=== PATIENT | female | born 1965 | race Hispanic/Latino ===

== ENCOUNTER 2016-10-13 20:48 | Inpatient (IN) | payer MEDICAID ==
[2016-10-13 20:49] VITALS: BMI 31.3
--- NOTE | 2016-10-13 21:51 | ED PDOC ---
Syncope/Near Syncope/Dizziness Time Seen by Provider: 10/13/16 20:57 Chief Complaint (Nursing): Dizziness/Lightheaded Chief Complaint (Provider): weakness History Per: Patient History/Exam Limitations: no limitations Onset/Duration Of Symptoms: Days (3), Gradual, Persistent Current Symptoms Are (Timing): Still Present Additional Complaint(s): Pt reports lightheadedness for 4 days, increasing since onset. Symptoms similar to previous episodes of anemia requiring transfusion. She denies chest pain of shortness of breath. +nausea chronic, but no vomiting or diarrhea. No black or bloody stools. No abdominal pain. No fever or chills. No urinary symptoms. When initially diagnosed with anemia, she had bleeding ulcers, esophageal varices, drank heavily, and was told she also had heart failure. 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 PMD. Dr Letha Mauro ([facility]) Past Medical History Reviewed: Historical Data, Nursing Documentation, Vital Signs Vital Signs: Last Vital Signs Temp 97.9 F 10/13/16 20:51 Pulse 84 10/13/16 20:51 Resp 18 10/13/16 20:51 BP 152/104 H 10/13/16 20:51 Pulse Ox 98 10/13/16 20:51 - Medical History PMH: Anemia, Anxiety, Depression, Diabetes, Gastritis, HTN Denies: HIV, Chronic Kidney Disease - Surgical History Surgical History: Endoscopy (WITH BANDING), - Family History Family History: States: Diabetes, Hypertension - Social History Current smoker - smoking cessation education provided: Yes Alcohol: Other (Recovering alcoholis) Drugs: Denies - Home Medications Home Medications: Ambulatory Orders Medication Instructions Recorded Alprazolam [Xanax] 0.25 mg PO DAILY PRN 01/15/14 Glyburide 2.5 mg PO DAILY 01/15/14 Pantoprazole Sodium [Protonix] 40 mg PO DAILY 01/15/14 Cholecalciferol [Vitamin D 1000 IU] 1 tab PO DAILY 07/18/14 Furosemide [Lasix] 20 mg PO DAILY 07/18/14 Propranolol Hydrochloride 10 mg PO DAILY 07/18/14 [Propranolol] Sucralfate [Carafate Oral Susp] 1 gm PO TID 07/18/14 Multivitamin 1 tab PO DAILY #0 tab 07/22/14 Alogliptin Herber/Metformin HCl 1 tab PO BID 10/14/16 [Alogliptin-Metformin 12.5-1000] Cholecalciferol (Vitamin D3) 1 tab PO DAILY 10/14/16 [Vitamin D3] Potassium Chloride [Klor-Con M10] 10 meq PO BID 10/14/16 - Allergies Allergies/Adverse Reactions: Allergies Allergy/AdvReac Type Severity Reaction Status Date / Time No Known Allergies Allergy Verified 07/18/14 13:37 Review of Systems ROS Statement: Except As Marked, All Systems Reviewed And Found Negative (and as per HPI) Constitutional: Positive for: Chills, Weakness, Malaise. Negative for: Fever Cardiovascular: Negative for: Chest Pain Respiratory: Negative for: Shortness of Breath Gastrointestinal: Positive for: Nausea. Negative for: Vomiting, Abdominal Pain , Diarrhea, Melena, Hematochezia, Hematemesis, Rectal Pain Physical Exam - Reviewed Nursing Documentation Reviewed: Yes Vital Signs Reviewed: Yes - Physical Exam Appears: Positive for: Non-toxic, No Acute Distress Head Exam: Positive for: ATRAUMATIC, NORMOCEPHALIC Skin: Positive for: Warm, Dry, Pallor Eye Exam: Positive for: EOMI, PERRL ENT: Positive for: Other (tacky muc membranes) Neck: Positive for: Painless ROM, Supple Cardiovascular/Chest: Positive for: Regular Rate, Rhythm, Chest Non Tender. Negative for: Edema, Murmur Respiratory: Positive for: Normal Breath Sounds. Negative for: Rales, Rhonchi, Wheezing Gastrointestinal/Abdominal: Positive for: Bowel Sounds, Soft. Negative for: Tenderness, Mass, Distended, Guarding Back: Negative for: Vertebral Tenderness Extremity: Positive for: Normal ROM. Negative for: Deformity Lymphatic: Negative for: Adenopathy Neurologic/Psych: Positive for: Alert. Negative for: Motor/Sensory Deficits - Laboratory Results Result Diagrams: 10/15/16 05:30 10/15/16 05:30 - ECG ECG: Positive for: Interpreted By Me ECG Rhythm: Positive for: Normal QRS, Normal ST Segment, Sinus Rhythm O2 Sat by Pulse Oximetry: 98 Pulse Ox Interpretation: Normal - Radiology X-Ray: Interpreted by Me X-Ray Interpretation: No Acute Disease - Progress ED Course And Treament: Findings demonstrate elevated troponin. DW pt findings and she continues to have no chest pain. She reports that she hadn't had any cardiac issues since the first time she was diagnosed with anemia SIMONA Brito [employer] for [facility]. Dr [facility] and Dr [facility] for consults. Per Dr [facility], given history of GI bleed, although she may benefit from ASA and lovenox, because of h/o of severe GI bleed, the risk of bleed outweighs benefit and will be withheld. (One dose ASA given, but no further doses pending further cardiology evaluation. ) Disposition - Clinical Impression Clinical Impression: Anemia, Elevated troponin Counseled Patient/Family Regarding: Studies Performed, Diagnosis - Disposition Disposition Time: 22:00 Condition: GUARDED
[2016-10-13 22:02] LABS: BASO % 0.2 % (0.0-2.0); EOS % 1.1 % (0.0-4.0); HEMATOCRIT 25.7 % (34.0-47.0); LYMPH # 0.6 K/uL (1.0-4.3); LYMPH % 19.2 % (20.0-40.0); MEAN CORPUSCULAR HEMOGLOBIN 26.1 pg (27.0-31.0); MEAN PLATELET VOLUME 8.1 fl (7.2-11.7); MONO # 0.6 K/uL (0.0-0.8); MONO % 18.3 % (0.0-10.0); NEUT # 1.9 K/uL (1.8-7.0); NEUT % 61.2 % (50.0-75.0); RED CELL DISTRIBUTION WIDTH 20.2 % (11.5-14.5); WHITE BLOOD COUNT 3.1 K/uL (4.8-10.8)
[2016-10-13 22:07] LABS: ALB/GLOB RATIO 0.7 (1.0-2.1); ALKALINE PHOSPHATASE 97 U/L (38-126); ALT/SGPT 23 U/L (9-52); AST/SGOT 46 U/L (14-36); BILIRUBIN,TOTAL 0.5 mg/dl (0.2-1.3); BLOOD UREA NITROGEN 9 mg/dl (7-17); CALCIUM 8.9 mg/dL (8.4-10.2); CARBON DIOXIDE 22 mmol/L (22-30); CHLORIDE 99 mmol/L (98-107); GFR AFRICAN-AMERICAN > 60; GLUCOSE,RANDOM 170 mg/dL (65-105); LIPASE 208 U/L (23-300); POTASSIUM 3.9 MMOL/L (3.6-5.0); SODIUM 132 mmol/l (132-148); TOTAL PROTEIN 8.2 G/DL (6.3-8.2)
[2016-10-13 22:14] LABS: PARTIAL THROMBOPLASTIN TIME 29.8 Seconds (25.6-37.1)
--- NOTE | 2016-10-14 06:38 | CP.PCM.PN ---
Subjective - Date & Time of Evaluation Date of Evaluation: 10/14/16 Time of Evaluation: 06:38 Objective - Vital Signs/Intake and Output Vital Signs (last 24 hours): Temp Pulse Resp BP Pulse Ox 99.7 F H 91 H 20 131/76 98 10/14/16 05:19 10/14/16 05:19 10/14/16 05:19 10/14/16 05:19 10/14/16 05:19 - Labs Labs: PT 14.7 Seconds (9.8-13.1) H 10/13/16 21:40 INR 1.3 (0.9-1.2) H 10/13/16 21:40 APTT 29.8 Seconds (25.6-37.1) 10/13/16 21:40
[2016-10-14] MEDS ORDERED: Patient's Own Med (Alogliptin Benz/Metformin Hcl [Alogliptin-Metformin 12.5-1000] 1 TAB) PO SCH (09:00)
[2016-10-14] MEDS ORDERED: Patient's Own Med (Cholecalciferol (Vitamin D3) [Vitamin D3] 1 TAB) PO SCH (09:00)
[2016-10-14 09:17] LABS: BASO % 0.5 % (0.0-2.0); EOS % 0.7 % (0.0-4.0); HEMATOCRIT 23.9 % (34.0-47.0); LYMPH # 0.4 K/uL (1.0-4.3); LYMPH % 13.1 % (20.0-40.0); MEAN CELL VOLUME 83.7 fl (81.0-99.0); MEAN CORPUSCULAR HEMOGLOBIN 26.2 pg (27.0-31.0); MEAN CORPUSCULAR HGB CONC 31.3 g/dL (33.0-37.0); MEAN PLATELET VOLUME 8.3 fl (7.2-11.7); MONO # 0.6 K/uL (0.0-0.8); MONO % 17.7 % (0.0-10.0); NEUT # 2.2 K/uL (1.8-7.0); NRBC % 0.2 % (0.0-0.0); RED CELL DISTRIBUTION WIDTH 19.6 % (11.5-14.5); WHITE BLOOD COUNT 3.2 K/uL (4.8-10.8)
[2016-10-14 09:19] LABS: ALB/GLOB RATIO 0.8 (1.0-2.1); ALKALINE PHOSPHATASE 104 U/L (38-126); ALT/SGPT 25 U/L (9-52); AST/SGOT 38 U/L (14-36); BILIRUBIN,TOTAL 0.6 mg/dl (0.2-1.3); BLOOD UREA NITROGEN 7 mg/dl (7-17); CALCIUM 8.9 mg/dL (8.4-10.2); CARBON DIOXIDE 22 mmol/L (22-30); CHLORIDE 99 mmol/L (98-107); GFR AFRICAN-AMERICAN > 60; GLUCOSE,RANDOM 154 mg/dL (65-105); POTASSIUM 4.4 MMOL/L (3.6-5.0); SODIUM 133 mmol/l (132-148); TOTAL PROTEIN 8.5 G/DL (6.3-8.2)
[2016-10-14 09:24] LABS: PARTIAL THROMBOPLASTIN TIME 30.8 Seconds (25.6-37.1)
--- NOTE | 2016-10-14 10:28 | CP.PCM.HP ---
History of Present Illness - History of Present Illness History of Present Illness: pt admitted for gi bleed and found to have positive troponin. no f/c, n/v/d. pt has intermittent n/v. hgb 8 but pt states is lower usually. stool guiac negative. Present on Admission - Present on Admission Any Indicators Present on Admission: Yes History of Uncontrolled Diabetes: Yes Review of Systems - Gastrointestinal Gastrointestinal: As Per HPI, Hematemesis Past Patient History - Infectious Disease Hx of Infectious Diseases: None - Tetanus Immunizations Tetanus Immunization: Unknown - Past Medical History & Family History Past Medical History?: Yes - Past Social History Smoking Status: Heavy Smoker > 10 Cigarettes Daily - CARDIAC Hx Hypertension: Yes - PULMONARY Hx Respiratory Disorders: No - NEUROLOGICAL Hx Neurological Disorder: No - HEENT Hx HEENT Problems: No - RENAL Hx Chronic Kidney Disease: No - ENDOCRINE/METABOLIC Hx Endocrine Disorders: Yes Hx Diabetes Mellitus Type 2: Yes - HEMATOLOGICAL/ONCOLOGICAL Hx Anemia: Yes Hx Human Immunodeficiency Virus (HIV): No - INTEGUMENTARY Hx Dermatological Problems: No - MUSCULOSKELETAL/RHEUMATOLOGICAL Hx Musculoskeletal Disorders: No Hx Falls: Yes - GASTROINTESTINAL Hx Gastritis: Yes - GENITOURINARY/GYNECOLOGICAL Hx Genitourinary Disorders: No - PSYCHIATRIC Hx Anxiety: Yes Hx Depression: Yes Hx Substance Use: Yes - SURGICAL HISTORY Hx Section: Yes (x2) - ANESTHESIA Hx Anesthesia: Yes Hx Anesthesia Reactions: No Hx Malignant Hyperthermia: No Meds Allergies/Adverse Reactions: Allergies Allergy/AdvReac Type Severity Reaction Status Date / Time No Known Allergies Allergy Verified 07/18/14 13:37 Physical Exam - Constitutional Appears: Well, Non-toxic, No Acute Distress - Head Exam Head Exam: ATRAUMATIC, NORMAL INSPECTION, NORMOCEPHALIC - Eye Exam Eye Exam: EOMI, Normal appearance, PERRL Pupil Exam: NORMAL ACCOMODATION, PERRL - ENT Exam ENT Exam: Mucous Membranes Moist, Normal Exam - Neck Exam Neck exam: Positive for: Normal Inspection - Respiratory Exam Respiratory Exam: Clear to Auscultation Bilateral, NORMAL BREATHING PATTERN - Cardiovascular Exam Cardiovascular Exam: REGULAR RHYTHM, RRR, +S1, +S2 - GI/Abdominal Exam GI & Abdominal Exam: Normal Bowel Sounds, Soft. absent: Tenderness - Extremities Exam Extremities exam: Positive for: full ROM, normal capillary refill, normal inspection, pedal pulses present - Back Exam Back exam: FULL ROM, NORMAL INSPECTION - Neurological Exam Neurological exam: Alert, CN II-XII Intact, Normal Gait, Oriented x3, Reflexes Normal - Psychiatric Exam Psychiatric exam: Normal Affect, Normal Mood - Skin Skin Exam: Dry, Intact, Normal Color, Warm Results - Vital Signs Recent Vital Signs: Last Vital Signs Temp 99.6 F 10/14/16 08:00 Pulse 97 H 10/14/16 08:00 Resp 20 10/14/16 08:00 BP 164/72 H 10/14/16 08:00 Pulse Ox 96 10/14/16 08:00 - Labs Result Diagrams: 10/14/16 08:50 10/14/16 08:50 Labs: Laboratory Results - last 24 hr 10/14/16 10/14/16 10/14/16 06:35 08:50 08:50 WBC 3.2 L RBC 2.86 L Hgb 7.5 L Hct 23.9 L MCV 83.7 MCH 26.2 L MCHC 31.3 L RDW 19.6 H Plt Count 93 L MPV 8.3 Neut % (Auto) 68.0 Lymph % (Auto) 13.1 L Kerr % (Auto) 17.7 H Eos % (Auto) 0.7 Baso % (Auto) 0.5 Neut # 2.2 Lymph # 0.4 L Kerr # 0.6 Eos # 0.0 Baso # 0.0 PT INR APTT Sodium 133 Potassium 4.4 Chloride 99 Carbon Dioxide 22 Anion Gap 16 BUN 7 Creatinine 0.7 Est GFR ( Amer) > 60 Est GFR (Non-Af Amer) > 60 Random Glucose 154 H Calcium 8.9 Total Bilirubin 0.6 AST 38 H ALT 25 Alkaline Phosphatase 104 Troponin I 0.2270 H* Total Protein 8.5 H Albumin 3.7 Globulin 4.8 H Albumin/Globulin Ratio 0.8 L Stool Occult Blood 10/14/16 10/14/16 08:50 23:20 WBC RBC Hgb Hct MCV MCH MCHC RDW Plt Count MPV Neut % (Auto) Lymph % (Auto) Kerr % (Auto) Eos % (Auto) Baso % (Auto) Neut # Lymph # Kerr # Eos # Baso # PT 14.2 H INR 1.3 H APTT 30.8 Sodium Potassium Chloride Carbon Dioxide Anion Gap BUN Creatinine Est GFR ( Amer) Est GFR (Non-Af Amer) Random Glucose Calcium Total Bilirubin AST ALT Alkaline Phosphatase Troponin I Total Protein Albumin Globulin Albumin/Globulin Ratio Stool Occult Blood Negative Assessment & Plan (1) Anemia Assessment and Plan: acute on chronic, r/t chornicl iver disease transfuse 2 unit prbc will monitor Status: Acute Priority: High (2) Elevated troponin Assessment and Plan: cardio echo trops hold asa r/t anemia, chirrhosis, gib Status: Acute (3) Cirrhosis Assessment and Plan: gi ppi Status: Acute (4) DVT prophylaxis Assessment and Plan: scd and aehose ambulation Status: Acute (5) Diabetes type 2, controlled Assessment and Plan: fsbg, ivf hold po meds whil npo riss prn Status: Acute (6) UGIB (upper gastrointestinal bleed) Assessment and Plan: iv ppi, npo Status: Acute Priority: High Decision To Admit - Pt Status Changed To: Hospital Disposition Of: Observation - . Bed Request Type: Telemetry Admitting Physician: Jayna Peterson
[2016-10-14] MEDS: Sucralfate 1 gm/10 ml Oral Susp UD PO SCH ×3 (10:31→17:02)
[2016-10-14] MEDS: Dextrose 5%/0.45% NS 1,000 ML IV SCH ×2 (10:31→21:00)
[2016-10-14] MEDS: Potassium Chloride 10 mEq ER Tab PO SCH ×2 (10:32→17:04)
[2016-10-14] MEDS: Pantoprazole 40 mg EC Tab PO SCH (10:33)
[2016-10-14] MEDS: Multivitamin With Minerals Tab PO SCH (10:33)
--- NOTE | 2016-10-14 15:13 | RAD ---
HISTORY: Lightheaded COMPARISON: Chest x-ray performed 07/18/14 TECHNIQUE: Chest, one view. FINDINGS: LUNGS: Medial right upper lobe opacity, possibly pleural based ; neoplasm is not excluded. Please note that chest x-ray has limited sensitivity for the detection of pulmonary masses. PLEURA: No significant pleural effusion identified. No definite pneumothorax . CARDIOVASCULAR: The cardiomediastinal silhouette appears within normal limits of size. OSSEOUS STRUCTURES: No acute osseous abnormality identified. VISUALIZED UPPER ABDOMEN: Unremarkable. OTHER FINDINGS: None. IMPRESSION: Medial right upper lobe opacity, possibly pleural based; Malignant neoplasm is not excluded. Recommend CT of the chest for further evaluation. Findings discussed with the patient's BRIELLE Marrero on 10/14/16 at 3:05 p.m.
[2016-10-14] MEDS: Promethazine DM 6.25 mg-15 mg/5 ml Syrup PO PRN (21:08)
--- NOTE | 2016-10-14 22:52 | CARD ---
APPROVED REPORT EXAM: Two-dimensional and M-mode echocardiogram with Doppler and color Doppler. Other Information Quality : GoodRhythm : NSR INDICATION Elevated Troponin 2D DIMENSIONS IVSd0.95 (0.7-1.1cm)LVDd4.89 (3.9-5.9cm) LVOT Diameter2.25 (1.8-2.4cm)PWd0.88 (0.7-1.1cm) IVSs1.11 (0.8-1.2cm)LVDs3.49 (2.5-4.0cm) FS (%) 28.6 %PWs1.10 (0.8-1.2cm) LVEF (%)55.0 (>50%) M-Mode DIMENSIONS Left Atrium (MM)3.88 (2.5-4.0cm)IVSd0.82 (0.7-1.1cm) Aortic Root2.94 (2.2-3.7cm)LVDd5.94 (4.0-5.6cm) Aortic Cusp Exc.1.76 (1.5-2.0cm)PWd1.03 (0.7-1.1cm) IVSs1.21 cmFS (%) 41 % LVDs3.50 (2.0-3.8cm)PWs1.56 cm Mitral Valve MV E Klmimshr21.1cm/sMV DECEL [id number] A Dsqxqoct95.7cm/s MV NYS30muU/A ratio1.0MVA (PHT)4.58cm2 TDI Lateral E' Peak V13.85cm/sMedial E' Peak V9.29cm/sE/Lateral E'6.7 E/Medial E'10.0 Pulmonary Valve PV Peak Wyzsyooc262.8cm/s LEFT VENTRICLE The left ventricle is normal size. There is normal left ventricular wall thickness. The left ventricular function is normal. The left ventricular ejection fraction is within the normal range. There is normal LV segmental wall motion. Transmitral Doppler flow pattern is Grade I-abnormal relaxation pattern. RIGHT VENTRICLE The right ventricle is normal size. There is normal right ventricular wall thickness. The right ventricular systolic function is normal. ATRIA The left atrium size is normal. The right atrium size is normal. AORTIC VALVE The aortic valve is not well visualized. No aortic regurgitation is present. There is no aortic valvular stenosis. MITRAL VALVE The mitral valve is mildly thickened. There is no mitral valve stenosis. There is no mitral valve regurgitation noted. TRICUSPID VALVE The tricuspid valve is normal in structure and function. There is no tricuspid valve regurgitation noted. PULMONIC VALVE The pulmonary valve is normal in structure and function. There is no pulmonic valvular regurgitation. GREAT VESSELS The aortic root is normal in size. The IVC was not visualized. PERICARDIAL EFFUSION The pericardium appears normal. <Conclusion> The left ventricle is normal size. There is normal left ventricular wall thickness. The left ventricular function is normal. The left ventricular ejection fraction is within the normal range. There is normal LV segmental wall motion. Transmitral Doppler flow pattern is Grade I-abnormal relaxation pattern.
--- NOTE | 2016-10-14 23:30 | CT ---
EXAM: CT Chest With Intravenous Contrast CLINICAL HISTORY: 51 years old, female; Abnormal findings; Other: Abnormal cxr; Additional info: Suspicious mass on cxr. Sent port cxr from 10-14-2016 TECHNIQUE: Axial computed tomography images of the chest with intravenous contrast. This CT exam was performed using one or more of the following dose reduction techniques: automated exposure control, adjustment of the mA and/or kV according to patient size, and/or use of iterative reconstruction technique. Coronal and sagittal reformatted images were created and reviewed. CONTRAST: 90 mL of [id number] administered intravenously. COMPARISON: CR - CHEST PORTABLE 10/14/2016 12:16:18 AM FINDINGS: Lungs/pleura: Large masslike opacity extending from the right lung apex along the right mediastinum measuring approximately 6 x 7.5 x 9.5 cm. There is apparent extension into the mediastinum and mass effect on the right pulmonary artery, most notably upper lobe branches. No pneumothorax. No significant effusion. Heart: No cardiomegaly. No significant pericardial effusion. Bones: Unremarkable as visualized. No acute fracture Vasculature: No thoracic aortic aneurysm. Cannot evaluate for pulmonary embolism due to admixture from technique, but there is concern for pulmonary embolism based on appearance and followup CTA when patient is able to receive contrast is recommended to evaluate for pulmonary embolism. Lymph nodes: Lymphadenopathy. Difficult to discern right hilar/mediastinal adenopathy from extension of process. Partial visualization of right supraclavicular adenopathy. Nodular contour to the liver. Small hiatal hernia. IMPRESSION: Large masslike opacity extending from the right lung apex along the right mediastinum measuring approximately 6 x 7.5 x 9.5 cm. There is apparent extension into the mediastinum and mass effect on the right pulmonary artery, most notably upper lobe branches. Cannot evaluate for pulmonary embolism due to admixture from technique, but there is concern for pulmonary embolism based on appearance and followup CTA when patient is able to receive contrast is recommended to evaluate for pulmonary embolism. Lymphadenopathy. Difficult to discern right hilar/mediastinal adenopathy from extension of process. Partial visualization of right supraclavicular adenopathy. Nodular contour to the liver. Small hiatal hernia.
--- NOTE | 2016-10-14 23:54 | CARD ---
APPROVED REPORT EKG Measurement Heart [id number] <Conclusion> Normal sinus rhythm Normal ECG
[2016-10-15 07:09] LABS: BASO % 0.3 % (0.0-2.0); EOS % 0.8 % (0.0-4.0); HEMATOCRIT 28.3 % (34.0-47.0); LYMPH # 0.5 K/uL (1.0-4.3); LYMPH % 17.5 % (20.0-40.0); MEAN CELL VOLUME 84.6 fl (81.0-99.0); MEAN CORPUSCULAR HEMOGLOBIN 26.7 pg (27.0-31.0); MEAN CORPUSCULAR HGB CONC 31.5 g/dL (33.0-37.0); MEAN PLATELET VOLUME 8.2 fl (7.2-11.7); MONO # 0.7 K/uL (0.0-0.8); NEUT # 1.6 K/uL (1.8-7.0); NEUT % 57.4 % (50.0-75.0); NRBC % 0.1 % (0.0-0.0); PLATELET COUNT 91 K/uL (130-400); RED CELL DISTRIBUTION WIDTH 18.7 % (11.5-14.5); WHITE BLOOD COUNT 2.9 K/uL (4.8-10.8)
[2016-10-15 07:32] LABS: ALB/GLOB RATIO 0.7 (1.0-2.1); ALKALINE PHOSPHATASE 89 U/L (38-126); ALT/SGPT 31 U/L (9-52); AST/SGOT 39 U/L (14-36); BILIRUBIN,TOTAL 1.3 mg/dl (0.2-1.3); BLOOD UREA NITROGEN 10 mg/dl (7-17); CALCIUM 8.8 mg/dL (8.4-10.2); CARBON DIOXIDE 24 mmol/L (22-30); CHLORIDE 101 mmol/L (98-107); GFR AFRICAN-AMERICAN > 60; GLUCOSE,RANDOM 103 mg/dL (65-105); SODIUM 138 mmol/l (132-148); TOTAL PROTEIN 7.8 G/DL (6.3-8.2)
--- NOTE | 2016-10-15 08:52 | CP.PCM.CON ---
History of Present Illness - History of Present Illness History of Present Illness: I was asked to see patient by Byron Brito APN and Dr. Peterson. Patient is a 51 year old female with PMH HTN, previous GI bleed, esophageal varices who presents with nausea and dizziness. The patient states she has felt lightheaded and foggy lately. Symptoms began about 2 days ago. She has become nauseous but did not vomit. The patient denied associated chest pain. She presented to [facility] and was found to have a Hgb of 8. She also had a troponin of 0.3. Ekg was normal with no ischemia . I was asked for evaluation. The patient is resting comfortably and denies symptoms. Review of Systems - Constitutional Constitutional: Fatigue, Weakness - EENT Eyes: absent: As Per HPI, Blind Spots, Blurred Vision, Change in Vision, Decreased Night Vision, Diplopia, Discharge, Dry Eye, Exophthalmos, Floaters, Irritation, Itchy Eyes, Loss of Peripheral Vision, Pain, Photophobia, Requires Corrective Lenses, Sees Flashes, Spots in Vision, Tunnel Vision, Other Visual Disturbances, Loss of Vision, Other Ears: Disequilibrium Nose/Mouth/Throat: absent: As Per HPI, Epistaxis, Nasal Congestion, Nasal Discharge, Nasal Obstruction, Nasal Trauma, Nose Pain, Post Nasal Drip, Sinus Pain, Sinus Pressure, Bleeding Gums, Change in Voice, Dental Pain, Dry Mouth, Dysphagia, Halitosis, Hoarsness, Lip Swelling, Mouth Lesions, Mouth Pain, Odynophagia, Sore Throat, Throat Swelling, Tongue Swelling, Facial Pain, Neck Pain, Neck Mass, Other - Cardiovascular Cardiovascular: absent: As Per HPI, Acrocyanosis, Chest Pain, Chest Pain at Rest , Chest Pain with Activity, Claudication, Diaphoresis, Dyspnea, Dyspnea on Exertion, Edema, Irregular Heart Rhythm, Pain Radiating to Arm/Neck/Jaw, Leg Edema, Leg Ulcers, Lightheadedness, Orthopnea, Palpitations, Paroxysmal Nocturnal Dyspnea, Pedal Edema, Radiating Pain, Rapid Heart Rate, Slow Heart Rate, Syncope, Other - Respiratory Respiratory: absent: As Per HPI, Cough, Dyspnea, Hemoptysis, Dyspnea on Exertion , Wheezing, Snoring, Stridor, Pain on Inspiration, Chest Congestion, Excessive Mucous Production, Change in Mucous Color, Pain with Coughing, Other - Gastrointestinal Gastrointestinal: Nausea - Genitourinary Genitourinary: absent: As Per HPI, Change in Urinary Stream, Difficulty Urinating, Dysuria, Flank Pain, Hematuria, Pyuria, Nocturia, Urinary Incontinence, Urinary Frequency, Urinary Hesitance, Urinary Urgency, Voiding Freq/Small Amts, Freq UTI, Hx Renal/Bladder Calculi, Hx /Renal Surgery, Bladder Distension, Other - Musculoskeletal Musculoskeletal: absent: As Per HPI, Abnormal Gait, Arthralgias, Atrophy, Back Pain, Deformity, Joint Swelling, Limited Range of Motion, Loss of Height, Muscle Cramps, Muscle Weakness, Myalgias, Neck Pain, Numbness, Radiating Pain into Limb, Stiffness, Tingling, Other - Integumentary Integumentary: absent: As Per HPI, Acne, Alopecia, Bleeding Lesions, Change in Hair, Change in Nails, Change in Pigmentation, Changing Lesions, Dry Skin, Erythema, Furuncle, Hirsutism, Lesions, New Lesions, Non-Healing Lesions, Photosensitivity, Pruritus, Rash, Skin Pain, Skin Ulcer, Sores, Striae, Swelling , Unusual Bruising, Wounds, Jaundice, Other - Neurological Neurological: absent: As Per HPI, Abnormal Gait, Abnormal Hearing, Abnormal Movements, Abnormal Speech, Behavioral Changes, Burning Sensations, Confusion, Convulsions, Disequilibrium, Dizziness, Numbness, Focal Weakness, Frequent Falls , Headaches, Lack of Coordination, Loss of Vision, Memory Loss, Paresthesias, Radicular Pain, Restless Legs, Sensory Deficit, Syncope, Tingling, Tremor, Vertigo, Weakness, Other Visual Disturbances, Other - Psychiatric Psychiatric: absent: As Per HPI, Abnormal Sleep Pattern, Anhedonia, Anxiety, Auditory Hallucinations, Behavioral Changes, Change in Appetite, Change in Libido, Confusion, Depression, Difficulty Concentrating, Hallucinations, Homicidal Ideation, Hopelessness, Irritability, Memory Loss, Mood Swings, Panic Attacks, Paranoia, Suicidal Ideation, Visual Hallucinations, Tactile Hallucinations, Other - Endocrine Endocrine: absent: As Per HPI, Change in Body Appearance, Change in Libido, Cold Intolorance, Deepening of Voice, Excessive Sweating, Fatigue, Flushing, Heat Intolorance, Increase in Ring/Shoe/Hat Size, Palpitations, Polydipsia, Polyphagia, Polyuria, Other - Hematologic/Lymphatic Hematologic: absent: As Per HPI, Easy Bleeding, Easy Bruising, Lymphadenopathy, Other Past Patient History - Infectious Disease Hx of Infectious Diseases: None - Tetanus Immunizations Tetanus Immunization: Unknown - Past Medical History & Family History Past Medical History?: Yes - Past Social History Smoking Status: Heavy Smoker > 10 Cigarettes Daily - CARDIAC Hx Hypertension: Yes - PULMONARY Hx Respiratory Disorders: No - NEUROLOGICAL Hx Neurological Disorder: No - HEENT Hx HEENT Problems: No - RENAL Hx Chronic Kidney Disease: No - ENDOCRINE/METABOLIC Hx Endocrine Disorders: Yes Hx Diabetes Mellitus Type 2: Yes - HEMATOLOGICAL/ONCOLOGICAL Hx Anemia: Yes Hx Human Immunodeficiency Virus (HIV): No - INTEGUMENTARY Hx Dermatological Problems: No - MUSCULOSKELETAL/RHEUMATOLOGICAL Hx Musculoskeletal Disorders: No Hx Falls: Yes - GASTROINTESTINAL Hx Gastritis: Yes - GENITOURINARY/GYNECOLOGICAL Hx Genitourinary Disorders: No - PSYCHIATRIC Hx Anxiety: Yes Hx Depression: Yes Hx Substance Use: Yes - SURGICAL HISTORY Hx Section: Yes (x2) - ANESTHESIA Hx Anesthesia: Yes Hx Anesthesia Reactions: No Hx Malignant Hyperthermia: No Meds Allergies/Adverse Reactions: Allergies Allergy/AdvReac Type Severity Reaction Status Date / Time No Known Allergies Allergy Verified 07/18/14 13:37 - Medications Medications: Current Medications Alprazolam (Xanax) 0.25 mg PO DAILY PRN PRN Reason: Anxiety Stop: 10/21/16 08:28 Cholecalciferol (Vitamin D) 1,000 iu PO DAILY [facility] Last Admin: 10/14/16 10:33 Dose: 1,000 iu Furosemide (Lasix) 20 mg PO DAILY [facility] Last Admin: 10/14/16 10:32 Dose: 20 mg Glyburide (Micronase) 2.5 mg PO DAILY [facility] Last Admin: 10/14/16 10:32 Dose: 2.5 mg Home Med (Alogliptin Herber/Metformin Hcl [Alogliptin-Metformin 12.5-1000]) 1 tab PO BID [facility] Dextrose/Sodium Chloride (Dextrose 5%/0.45% Ns 1000 Ml) 1,000 mls @ 80 mls/hr IV .[id number] [facility] Stop: 10/15/16 08:28 Last Admin: 10/14/16 10:31 Dose: 80 mls/hr Metformin HCl (Glucophage) 1,000 mg PO BID [facility] Multivitamins/Minerals (Therapeutic-M Tab) 1 tab PO DAILY [facility] Last Admin: 06/22/17 10:33 Dose: 1 tab Pantoprazole Sodium (Protonix Ec Tab) 40 mg PO DAILY [facility] Last Admin: 10/14/16 10:33 Dose: 40 mg Potassium Chloride (Klor-Con 10) 10 meq PO BID [facility] Last Admin: 10/14/16 10:32 Dose: 10 meq Propranolol HCl (Inderal) 10 mg PO DAILY [facility] Last Admin: 10/14/16 10:31 Dose: 10 mg Sitagliptin Phosphate (Januvia) 50 mg PO BID [facility] Sucralfate (Carafate Oral Susp) 1 gm PO TID [facility] Last Admin: 10/14/16 13:59 Dose: 1 gm Physical Exam - Constitutional Appears: Non-toxic - Head Exam Head Exam: NORMAL INSPECTION - Eye Exam Eye Exam: Normal appearance - Neck Exam Neck exam: Positive for: Meningismus - Respiratory Exam Respiratory Exam: NORMAL BREATHING PATTERN - Cardiovascular Exam Cardiovascular Exam: REGULAR RHYTHM - GI/Abdominal Exam GI & Abdominal Exam: Normal Bowel Sounds - Rectal Exam Rectal Exam: Deferred - Extremities Exam Extremities exam: Positive for: pedal pulses present - Back Exam Back exam: NORMAL INSPECTION - Neurological Exam Neurological exam: Alert, Oriented x3 - Psychiatric Exam Psychiatric exam: Normal Affect, Normal Mood - Skin Skin Exam: Warm Results - Vital Signs Recent Vital Signs: Last Vital Signs Temp 99.9 F H 10/14/16 15:49 Pulse 89 10/14/16 15:49 Resp 18 10/14/16 15:49 BP 141/75 10/14/16 15:49 Pulse Ox 95 10/14/16 15:49 - Labs Result Diagrams: 10/15/16 05:30 10/15/16 05:30 Labs: Laboratory Results - last 24 hr 10/14/16 10/14/16 10/14/16 06:35 08:50 08:50 WBC 3.2 L RBC 2.86 L Hgb 7.5 L Hct 23.9 L MCV 83.7 MCH 26.2 L MCHC 31.3 L RDW 19.6 H Plt Count 93 L MPV 8.3 Neut % (Auto) 68.0 Lymph % (Auto) 13.1 L Wayne % (Auto) 17.7 H Eos % (Auto) 0.7 Baso % (Auto) 0.5 Neut # 2.2 Lymph # 0.4 L Wayne # 0.6 Eos # 0.0 Baso # 0.0 PT INR APTT Sodium 133 Potassium 4.4 Chloride 99 Carbon Dioxide 22 Anion Gap 16 BUN 7 Creatinine 0.7 Est GFR ( Amer) > 60 Est GFR (Non-Af Amer) > 60 POC Glucose (mg/dL) Random Glucose 154 H Calcium 8.9 Total Bilirubin 0.6 AST 38 H ALT 25 Alkaline Phosphatase 104 Troponin I 0.2270 H* Total Protein 8.5 H Albumin 3.7 Globulin 4.8 H Albumin/Globulin Ratio 0.8 L Stool Occult Blood 10/14/16 10/14/16 10/14/16 08:50 11:25 14:57 WBC RBC Hgb Hct MCV MCH MCHC RDW Plt Count MPV Neut % (Auto) Lymph % (Auto) Wayne % (Auto) Eos % (Auto) Baso % (Auto) Neut # Lymph # Wayne # Eos # Baso # PT 14.2 H INR 1.3 H APTT 30.8 Sodium Potassium Chloride Carbon Dioxide Anion Gap BUN Creatinine Est GFR ( Amer) Est GFR (Non-Af Amer) POC Glucose (mg/dL) 159 H Random Glucose Calcium Total Bilirubin AST ALT Alkaline Phosphatase Troponin I 0.1770 H* Total Protein Albumin Globulin Albumin/Globulin Ratio Stool Occult Blood 10/14/16 23:20 WBC RBC Hgb Hct MCV MCH MCHC RDW Plt Count MPV Neut % (Auto) Lymph % (Auto) Wayne % (Auto) Eos % (Auto) Baso % (Auto) Neut # Lymph # Wayne # Eos # Baso # PT INR APTT Sodium Potassium Chloride Carbon Dioxide Anion Gap BUN Creatinine Est GFR ( Amer) Est GFR (Non-Af Amer) POC Glucose (mg/dL) Random Glucose Calcium Total Bilirubin AST ALT Alkaline Phosphatase Troponin I Total Protein Albumin Globulin Albumin/Globulin Ratio Stool Occult Blood Negative - EKG Data EKG Interpreted by: Myself Assessment & Plan (1) Elevated troponin Assessment and Plan: liklely due to anemia with possible subendocardial ischemia. The patient has no angina or cardiovascular symptoms. Normal wall motion by echo. no plans for cardiac cath. treat anemia. Status: Acute (2) Anemia Assessment and Plan: transfuse Status: Acute Priority: High
[2016-10-15] MEDS: Sucralfate 1 gm/10 ml Oral Susp UD PO SCH ×3 (09:02→16:44)
[2016-10-15] MEDS: Potassium Chloride 10 mEq ER Tab PO SCH ×2 (09:02→16:44)
[2016-10-15] MEDS: Pantoprazole 40 mg EC Tab PO SCH (09:03)
[2016-10-15] MEDS: Multivitamin With Minerals Tab PO SCH (09:03)
[2016-10-15 10:02] LABS: NEUTROPHIL 58 % (42-75); TOTAL CELLS COUNTED 100
--- NOTE | 2016-10-15 10:21 | CP.PCM.PN ---
Subjective - Date & Time of Evaluation Date of Evaluation: 10/15/16 Time of Evaluation: 10:21 - Subjective Subjective: pt denies new compalints. still w/ fatigue, dizziness. no f/c, n/v/d. found w/ large mass to r lung field w/ possible mass effect. heme/onc and pulm consults pending. pt is s/p 2units prbc. Objective - Vital Signs/Intake and Output Vital Signs (last 24 hours): Temp Pulse Resp BP Pulse Ox 98.2 F 81 18 140/76 97 10/15/16 08:03 10/15/16 09:03 10/15/16 08:03 10/15/16 09:03 10/15/16 08:03 - Medications Medications: Current Medications Acetaminophen (Tylenol 325mg Tab) 325 mg PO Q4 PRN PRN Reason: Fever >100.4 F Alprazolam (Xanax) 0.25 mg PO DAILY PRN PRN Reason: Anxiety Stop: 10/21/16 08:28 Last Admin: 10/15/16 09:14 Dose: 0.25 mg Cholecalciferol (Vitamin D) 1,000 iu PO DAILY [facility] Last Admin: 10/15/16 09:02 Dose: 1,000 iu Furosemide (Lasix) 20 mg PO DAILY [facility] Last Admin: 10/15/16 09:02 Dose: 20 mg Glyburide (Micronase) 2.5 mg PO DAILY [facility] Last Admin: 10/15/16 09:02 Dose: 2.5 mg Home Med (Alogliptin Herber/Metformin Hcl [Alogliptin-Metformin 12.5-1000]) 1 tab PO BID [facility] Metformin HCl (Glucophage) 1,000 mg PO BID [facility] Last Admin: 10/15/16 09:01 Dose: 1,000 mg Multivitamins/Minerals (Therapeutic-M Tab) 1 tab PO DAILY [facility] Last Admin: 10/15/16 09:03 Dose: 1 tab Pantoprazole Sodium (Protonix Ec Tab) 40 mg PO DAILY [facility] Last Admin: 10/15/16 09:03 Dose: 40 mg Potassium Chloride (Klor-Con 10) 10 meq PO BID [facility] Last Admin: 10/15/16 09:02 Dose: 10 meq Promethazine HCl/Dextromethorphan (Phenergan Dm Syrup) 5 ml PO Q6 PRN PRN Reason: Cough Last Admin: 10/14/16 21:08 Dose: 5 ml Propranolol HCl (Inderal) 10 mg PO DAILY [facility] Last Admin: 10/15/16 09:03 Dose: 10 mg Sitagliptin Phosphate (Januvia) 50 mg PO BID [facility] Last Admin: 10/15/16 09:02 Dose: 50 mg Sucralfate (Carafate Oral Susp) 1 gm PO TID [facility] Last Admin: 10/15/16 09:02 Dose: 1 gm - Labs Labs: 10/15/16 05:30 10/15/16 05:30 PT 14.2 Seconds (9.8-13.1) H 10/14/16 08:50 INR 1.3 (0.9-1.2) H 10/14/16 08:50 APTT 30.8 Seconds (25.6-37.1) 10/14/16 08:50 - Constitutional Appears: Well, Non-toxic, No Acute Distress - Head Exam Head Exam: ATRAUMATIC, NORMAL INSPECTION, NORMOCEPHALIC - Eye Exam Eye Exam: EOMI, Normal appearance, PERRL Pupil Exam: NORMAL ACCOMODATION, PERRL - ENT Exam ENT Exam: Mucous Membranes Moist, Normal Exam - Neck Exam Neck Exam: Full ROM, Normal Inspection. absent: Lymphadenopathy - Respiratory Exam Respiratory Exam: Clear to Ausculation Bilateral, NORMAL BREATHING PATTERN - Cardiovascular Exam Cardiovascular Exam: REGULAR RHYTHM, RRR, +S1, +S2. absent: Murmur - GI/Abdominal Exam GI & Abdominal Exam: Soft, Normal Bowel Sounds. absent: Tenderness - Extremities Exam Extremities Exam: Full ROM, Normal Capillary Refill, Normal Inspection. absent : Joint Swelling, Pedal Edema - Back Exam Back Exam: NORMAL INSPECTION - Neurological Exam Neurological Exam: Alert, Awake, CN II-XII Intact, Normal Gait, Oriented x3 - Psychiatric Exam Psychiatric exam: Normal Affect, Normal Mood - Skin Skin Exam: Dry, Intact, Normal Color, Warm Assessment and Plan (1) Anemia Assessment & Plan: r/t mass effect vs chronic, s/p 2 units prbc, will montior, heme/onc Status: Acute (2) Elevated troponin Assessment & Plan: ?? etiology cardio echo Status: Acute (3) Cirrhosis Assessment & Plan: gi monitor labs Status: Acute (4) DVT prophylaxis Assessment & Plan: scd and aehose hold anticoag for bx Status: Acute (5) Diabetes type 2, controlled Assessment & Plan: riss, home meds, fsbg Status: Acute (6) UGIB (upper gastrointestinal bleed) Assessment & Plan: ppi gi Status: Acute (7) Lung mass Assessment & Plan: pulm and heme/onc consult, ir for bx Status: Acute
--- NOTE | 2016-10-15 14:13 | CON ---
DATE: 10/15/2016 HISTORY OF PRESENT ILLNESS: The patient is a 51-year-old female who was referred for pulmonary evalua tion by Dr. Byron Brito. She was admitted with a GI bleed, elevated troponin level, and incidentall y found to have right-sided mediastinal mass. She was therefore referred for pulmonary evaluation. She admits to occasional shortness of breath and recently right posterior chest wall pain on and off for the past several months. She denies chest pains anywhere else. Admits to cough productive of oc casionally scant thick tenacious mucus. Denies palpitations, fever or chills. PAST MEDICAL HISTORY: Remarkable for anemia, diabetes mellitus, and cirrhosis. SOCIAL HISTORY: She smokes 1-2 packs of cigarettes daily, quit drinking years ago, does not use drug s. REVIEW OF SYSTEMS: Essentially remarkable for occasional chest pains, some shortness of breath. PHYSICAL EXAMINATION: GENERAL: The patient is alert and oriented, anxious because of findings. VITAL SIGNS: Blood pressure 151/90, pulse of 86, respirations 18. She is afebrile. O2 sat 96% on r oom air. SKIN: Shows fair turgor. HEENT: Pupils equal, reactive to light and accommodation. Mouth shows fair hygiene. NECK: JVP flat. LUNGS: Fair aeration with right apical dullness. HEART: S1, S2. BREASTS: Normal. ABDOMEN: Soft, nontender. No organomegaly. EXTREMITIES: Show no edema or cyanosis. CENTRAL NERVOUS SYSTEM: Grossly intact. LABORATORY DATA: WBC 2.9, hemoglobin 8.9, platelet count 91,000. Sodium 138, potassium 4.0, BUN 10, creatinine 0.8. Troponin 0.1770, PT 14.2, INR 1.3. Chest x-ray: Right medial upper lobe opacity, possible pleural based; malignant neoplasm has to be excluded. CT scan of the chest is remarkable fo r large mass-like opacity extending from the right lung apex along right mediastinum measuring 6 x 7. 5 x 9.5 cm. There is mass effect on the right pulmonary most likely upper lobe branches. Lymp hadenopathy difficult to discern. Small hiatal hernia. EKG: Normal sinus rhythm. 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 One has to rule out malignancy. PLAN: The case was discussed with the patient. She will entertain CT-guided needle biopsy or bronch oscopy, but she has to discuss it with her family. We will discuss with her some more over the weeke nd. Further therapy will proceed once she is medically stable. Spencer Calvert MD cc: [id number] TT: 10/15/2016 14:12:57 Confirmation # [id number] Dictation # [id number]
--- NOTE | 2016-10-15 22:31 | CON ---
DATE: 10/13/2016 REFERRING PHYSICIAN: Dr. Peterson REASON FOR CONSULTATION: Anemia. HISTORY OF PRESENT ILLNESS: This is a 52-[id number]-female psoriatic comes in with positive troponins and chest pain. GI is called for anemia. The patient has had workups in the past including myself. She had ____ which were banded some time ago, has had a colonoscopies and endoscopies both here and i n the hospitals for which they cannot find any reasons for her anemia. The patient currently lying i n bed, comfortable, no abdominal distress, more of a chest pain issue. Denies any active bleeding, n o ____ hematemesis, hematochezia. Currently lying in bed comfortable, in no apparent distress. PAST MEDICAL HISTORY: As above. MEDICATIONS: Have been reviewed. REVIEW OF SYSTEMS: All other systems have been reviewed and negative apart from the HPI. PHYSICAL EXAMINATION: VITAL SIGNS: Grossly unremarkable. HEAD: Normocephalic, atraumatic. EYES: Pupils equally reactive to light bilaterally. No conjunctival pallor or icterus. NECK: Supple, normal range of motion. No lymphadenopathy appreciated. LUNGS: Clear to auscultation bilaterally. HEART: S1, S2. Regular rate and rhythm. No murmurs appreciated. ABDOMEN: Soft, nontender. Bowel sounds present. No rebound or guarding. RECTAL: Deferred. EXTREMITIES: Pulses present bilaterally. SKIN: Warm, dry and intact. NEUROLOGIC: Alert and oriented x 3. LABORATORY DATA: All labs and other relevant radiology has been reviewed. WBC 3.1, hemoglobin of 8. 6, hematocrit 25.7, platelet count of 104. ____ Troponin 0.31 and 0.177. Stool occult blood is negat josué. Chest CT is ordered, pending. ASSESSMENT AND PLAN: This is a 51-year-old female with multiple medical problems, anemia of unclear etiology, from GI standpoint there is no active evidence of bleeding. Proceed to cath as needed, chris l need to finish her workup for her anemia as an outpatient if possible. Given her x-ray findings, r ecommend take CT chest as well as pulmonary input. Thank you for the consult. Andrea Matamoros MD, PhD cc:Byron DUARTE [id number] TT: 10/15/2016 22:30:46 Confirmation # [id number] Dictation # [id number] jn
[2016-10-15] MEDS: Promethazine DM 6.25 mg-15 mg/5 ml Syrup PO PRN (23:27)
--- NOTE | 2016-10-16 04:08 | CP.PCM.CON ---
History of Present Illness - History of Present Illness History of Present Illness: 51 year old female with a history of DM, esophageal varices, admitted with GI bleed and fatigue, found to have elevated troponin, anemia, and mediastinal mass. The patient notes to increasing fatigue and light headedness for a few days. Her symptoms felt similar to prior hospitalization requiring PRBC transfusion support and so she came to the hospital. She is s/p PRBC transfusion support and reports to feeling better. She does note to intermittent hematochezia at home for several months. Past medical history: DM, esophageal varices, anemia Past surgical history: x 2 Family history: Unknown cancers on fathers side of family Social history: 3/4 ppd x 25 years, used to drink heavily, denies illicit drug use. Allergies: NKA Review of systems: All remaining review of systems including HEENT, cardiovascular, respiratory, gastrointestinal, genitourinary, musculoskeletal, dermatologic, neurologic, and psychiatric are negative unless mentioned in the HPI. Past Patient History - Infectious Disease Hx of Infectious Diseases: None - Tetanus Immunizations Tetanus Immunization: Unknown - Past Medical History & Family History Past Medical History?: Yes - Past Social History Smoking Status: Heavy Smoker > 10 Cigarettes Daily - CARDIAC Hx Hypertension: Yes - PULMONARY Hx Respiratory Disorders: No - NEUROLOGICAL Hx Neurological Disorder: No - HEENT Hx HEENT Problems: No - RENAL Hx Chronic Kidney Disease: No - ENDOCRINE/METABOLIC Hx Endocrine Disorders: Yes Hx Diabetes Mellitus Type 2: Yes - HEMATOLOGICAL/ONCOLOGICAL Hx Anemia: Yes Hx Human Immunodeficiency Virus (HIV): No - INTEGUMENTARY Hx Dermatological Problems: No - MUSCULOSKELETAL/RHEUMATOLOGICAL Hx Musculoskeletal Disorders: No Hx Falls: Yes - GASTROINTESTINAL Hx Gastritis: Yes - GENITOURINARY/GYNECOLOGICAL Hx Genitourinary Disorders: No - PSYCHIATRIC Hx Anxiety: Yes Hx Depression: Yes Hx Substance Use: Yes - SURGICAL HISTORY Hx Section: Yes (x2) - ANESTHESIA Hx Anesthesia: Yes Hx Anesthesia Reactions: No Hx Malignant Hyperthermia: No Meds Allergies/Adverse Reactions: Allergies Allergy/AdvReac Type Severity Reaction Status Date / Time No Known Allergies Allergy Verified 07/18/14 13:37 - Medications Medications: Current Medications Acetaminophen (Tylenol 325mg Tab) 325 mg PO Q4 PRN PRN Reason: Fever >100.4 F Alprazolam (Xanax) 0.25 mg PO DAILY PRN PRN Reason: Anxiety Stop: 10/21/16 08:28 Last Admin: 10/15/16 09:14 Dose: 0.25 mg Cholecalciferol (Vitamin D) 1,000 iu PO DAILY [facility] Last Admin: 10/15/16 09:02 Dose: 1,000 iu Furosemide (Lasix) 20 mg PO DAILY [facility] Last Admin: 10/15/16 09:02 Dose: 20 mg Glyburide (Micronase) 2.5 mg PO DAILY [facility] Last Admin: 10/15/16 09:02 Dose: 2.5 mg Home Med (Alogliptin Herber/Metformin Hcl [Alogliptin-Metformin 12.5-1000]) 1 tab PO BID [facility] Metformin HCl (Glucophage) 1,000 mg PO BID [facility] Last Admin: 10/15/16 16:44 Dose: 1,000 mg Multivitamins/Minerals (Therapeutic-M Tab) 1 tab PO DAILY [facility] Last Admin: 10/15/16 09:03 Dose: 1 tab Pantoprazole Sodium (Protonix Ec Tab) 40 mg PO DAILY [facility] Last Admin: 10/15/16 09:03 Dose: 40 mg Potassium Chloride (Klor-Con 10) 10 meq PO BID [facility] Last Admin: 10/15/16 16:44 Dose: 10 meq Promethazine HCl/Dextromethorphan (Phenergan Dm Syrup) 5 ml PO Q6 PRN PRN Reason: Cough Last Admin: 10/15/16 23:27 Dose: 5 ml Propranolol HCl (Inderal) 10 mg PO DAILY [facility] Last Admin: 10/15/16 09:03 Dose: 10 mg Sitagliptin Phosphate (Januvia) 50 mg PO BID [facility] Last Admin: 10/15/16 16:44 Dose: 50 mg Sucralfate (Carafate Oral Susp) 1 gm PO TID [facility] Last Admin: 10/15/16 16:44 Dose: 1 gm Physical Exam - Head Exam Head Exam: ATRAUMATIC - Eye Exam Eye Exam: Normal appearance - ENT Exam ENT Exam: Mucous Membranes Dry - Respiratory Exam Respiratory Exam: NORMAL BREATHING PATTERN - Cardiovascular Exam Cardiovascular Exam: +S1, +S2 - GI/Abdominal Exam GI & Abdominal Exam: Normal Bowel Sounds - Extremities Exam Extremities exam: Positive for: normal inspection - Neurological Exam Neurological exam: Oriented x3 - Psychiatric Exam Psychiatric exam: Normal Affect, Normal Mood - Skin Skin Exam: Warm Results - Vital Signs Recent Vital Signs: Last Vital Signs Temp 98.9 F 10/16/16 00:15 Pulse 91 H 10/16/16 00:15 Resp 20 10/16/16 00:15 BP 150/79 10/16/16 00:15 Pulse Ox 95 10/16/16 00:15 - Labs Result Diagrams: 10/15/16 05:30 10/15/16 05:30 Labs: Laboratory Results - last 24 hr 10/15/16 10/15/16 10/15/16 05:18 05:30 05:30 WBC 2.9 L RBC 3.34 L Hgb 8.9 L Hct 28.3 L MCV 84.6 MCH 26.7 L MCHC 31.5 L RDW 18.7 H Plt Count 91 L MPV 8.2 Neut % (Auto) 57.4 Lymph % (Auto) 17.5 L [place] % (Auto) 24.0 H Eos % (Auto) 0.8 Baso % (Auto) 0.3 Neut # 1.6 L Lymph # 0.5 L [place] # 0.7 Eos # 0.0 Baso # 0.0 Neutrophils % (Manual) 58 Lymphocytes % (Manual) 19 L Monocytes % (Manual) 23 H Platelet Estimate Decreased L Anisocytosis (manual) Moderate Rouleaux Slight Sodium 138 Potassium 4.0 Chloride 101 Carbon Dioxide 24 Anion Gap 17 BUN 10 Creatinine 0.8 Est GFR ( Amer) > 60 Est GFR (Non-Af Amer) > 60 POC Glucose (mg/dL) 109 Random Glucose 103 Calcium 8.8 Total Bilirubin 1.3 AST 39 H ALT 31 Alkaline Phosphatase 89 Total Protein 7.8 Albumin 3.3 L Globulin 4.5 H Albumin/Globulin Ratio 0.7 L 10/15/16 10/15/16 10/15/16 10:53 16:27 21:29 WBC RBC Hgb Hct MCV MCH MCHC RDW Plt Count MPV Neut % (Auto) Lymph % (Auto) [place] % (Auto) Eos % (Auto) Baso % (Auto) Neut # Lymph # [place] # Eos # Baso # Neutrophils % (Manual) Lymphocytes % (Manual) Monocytes % (Manual) Platelet Estimate Anisocytosis (manual) Rouleaux Sodium Potassium Chloride Carbon Dioxide Anion Gap BUN Creatinine Est GFR ( Amer) Est GFR (Non-Af Amer) POC Glucose (mg/dL) 169 H 155 H 169 H Random Glucose Calcium Total Bilirubin AST ALT Alkaline Phosphatase Total Protein Albumin Globulin Albumin/Globulin Ratio Assessment & Plan (1) Lung mass Assessment and Plan: with extension into the mediastinum rule out malignancy pt considering percutaneous needle biopsy or bronchoscopy Status: Acute (2) Pancytopenia Assessment and Plan: ?cirrhosis imaging shows splenomegaly; likely splenic sequestration from portal hypertension will check HIV, iron, b12, folate stores Status: Acute (3) Elevated serum globulin level Assessment and Plan: will evaluate for monoclonal protein Status: Acute (4) Coagulopathy Assessment and Plan: mild ?liver disease Thank you for this interesting consult. Status: Acute
[2016-10-16] MEDS: Sucralfate 1 gm/10 ml Oral Susp UD PO SCH ×3 (08:24→16:06)
[2016-10-16] MEDS: Multivitamin With Minerals Tab PO SCH (08:24)
[2016-10-16] MEDS: Potassium Chloride 10 mEq ER Tab PO SCH ×2 (08:27→16:06)
[2016-10-16] MEDS: Pantoprazole 40 mg EC Tab PO SCH (08:27)
--- NOTE | 2016-10-16 10:12 | CP.PCM.PN ---
Subjective - Date & Time of Evaluation Date of Evaluation: 10/16/16 Time of Evaluation: 10:12 - Subjective Subjective: still w/ weakness, no f/c, n/v/d.pending ct guided bx tuesday w/ ir. cough controlled. pt c/oanxiety. Objective - Vital Signs/Intake and Output Vital Signs (last 24 hours): Temp Pulse Resp BP Pulse Ox 98.6 F 83 18 135/78 95 10/16/16 08:36 10/16/16 08:36 10/16/16 08:36 10/16/16 08:36 10/16/16 08:36 Intake and Output: 10/16/16 10/16/16 06:59 18:59 Intake Total 600 Output Total 450 Balance 150 - Medications Medications: Current Medications Acetaminophen (Tylenol 325mg Tab) 325 mg PO Q4 PRN PRN Reason: Fever >100.4 F Alprazolam (Xanax) 0.25 mg PO DAILY PRN PRN Reason: Anxiety Stop: 10/21/16 08:28 Last Admin: 10/15/16 09:14 Dose: 0.25 mg Alprazolam (Xanax) 0.25 mg PO Q12 PRN PRN Reason: Anxiety Stop: 10/23/16 10:01 Cholecalciferol (Vitamin D) 1,000 iu PO DAILY [facility] Last Admin: 10/16/16 08:28 Dose: 1,000 iu Furosemide (Lasix) 20 mg PO DAILY [facility] Last Admin: 10/16/16 08:24 Dose: 20 mg Glyburide (Micronase) 2.5 mg PO DAILY [facility] Last Admin: 10/16/16 08:27 Dose: 2.5 mg Home Med (Alogliptin Herber/Metformin Hcl [Alogliptin-Metformin 12.5-1000]) 1 tab PO BID [facility] Metformin HCl (Glucophage) 1,000 mg PO BID [facility] Last Admin: 10/16/16 08:27 Dose: 1,000 mg Multivitamins/Minerals (Therapeutic-M Tab) 1 tab PO DAILY [facility] Last Admin: 10/16/16 08:24 Dose: 1 tab Pantoprazole Sodium (Protonix Ec Tab) 40 mg PO DAILY [facility] Last Admin: 10/16/16 08:27 Dose: 40 mg Potassium Chloride (Klor-Con 10) 10 meq PO BID [facility] Last Admin: 10/16/16 08:27 Dose: 10 meq Promethazine HCl/Dextromethorphan (Phenergan Dm Syrup) 5 ml PO Q6 PRN PRN Reason: Cough Last Admin: 10/15/16 23:27 Dose: 5 ml Propranolol HCl (Inderal) 10 mg PO DAILY [facility] Last Admin: 10/16/16 08:28 Dose: 10 mg Sitagliptin Phosphate (Januvia) 50 mg PO BID [facility] Last Admin: 10/16/16 08:28 Dose: 50 mg Sucralfate (Carafate Oral Susp) 1 gm PO TID [facility] Last Admin: 10/16/16 08:24 Dose: 1 gm - Labs Labs: 10/15/16 05:30 10/15/16 05:30 PT 14.2 Seconds (9.8-13.1) H 10/14/16 08:50 INR 1.3 (0.9-1.2) H 10/14/16 08:50 APTT 30.8 Seconds (25.6-37.1) 10/14/16 08:50 - Constitutional Appears: Well, Non-toxic, No Acute Distress - Head Exam Head Exam: ATRAUMATIC, NORMAL INSPECTION, NORMOCEPHALIC - Eye Exam Eye Exam: EOMI, Normal appearance, PERRL Pupil Exam: NORMAL ACCOMODATION, PERRL - ENT Exam ENT Exam: Mucous Membranes Moist, Normal Exam - Neck Exam Neck Exam: Full ROM, Normal Inspection. absent: Lymphadenopathy - Respiratory Exam Respiratory Exam: Clear to Ausculation Bilateral, NORMAL BREATHING PATTERN Additional comments: cogestion heard - Cardiovascular Exam Cardiovascular Exam: REGULAR RHYTHM, +S1, +S2. absent: Murmur - GI/Abdominal Exam GI & Abdominal Exam: Soft, Normal Bowel Sounds. absent: Tenderness - Extremities Exam Extremities Exam: Full ROM, Normal Capillary Refill, Normal Inspection. absent : Joint Swelling, Pedal Edema - Back Exam Back Exam: NORMAL INSPECTION - Neurological Exam Neurological Exam: Alert, Awake, CN II-XII Intact, Normal Gait, Oriented x3 - Psychiatric Exam Psychiatric exam: Normal Affect, Normal Mood - Skin Skin Exam: Dry, Intact, Normal Color, Warm Assessment and Plan (1) Anemia Status: Acute (2) Elevated troponin Status: Acute (3) Cirrhosis Status: Acute (4) DVT prophylaxis Status: Acute (5) Diabetes type 2, controlled Status: Acute (6) UGIB (upper gastrointestinal bleed) Status: Acute (7) Lung mass Status: Acute - Assessment and Plan (Free Text) Assessment: (1) Anemia Assessment & Plan: r/t mass effect vs chronic, s/p 2 units prbc, will montior, heme/onc Status: Acute (2) Elevated troponin Assessment & Plan: ?? etiology cardio echo Status: Acute (3) Cirrhosis Assessment & Plan: gi monitor labs Status: Acute (4) DVT prophylaxis Assessment & Plan: scd and aehose hold anticoag for bx Status: Acute (5) Diabetes type 2, controlled Assessment & Plan: riss, home meds, fsbg Status: Acute (6) UGIB (upper gastrointestinal bleed) Assessment & Plan: ppi gi Status: Acute (7) Lung mass Assessment & Plan: pulm and heme/onc consult, ir for bx Status: Acute
--- NOTE | 2016-10-16 11:04 | CP.PCM.PN ---
Subjective - Date & Time of Evaluation Date of Evaluation: 10/16/16 Time of Evaluation: 11:04 - Subjective Subjective: ANXIOUS NO SOB Objective - Vital Signs/Intake and Output Vital Signs (last 24 hours): Temp Pulse Resp BP Pulse Ox 98.6 F 83 18 135/78 95 10/16/16 08:36 10/16/16 08:36 10/16/16 08:36 10/16/16 08:36 10/16/16 08:36 Intake and Output: 10/16/16 10/16/16 06:59 18:59 Intake Total 600 Output Total 450 Balance 150 - Medications Medications: Current Medications Acetaminophen (Tylenol 325mg Tab) 325 mg PO Q4 PRN PRN Reason: Fever >100.4 F Alprazolam (Xanax) 0.25 mg PO DAILY PRN PRN Reason: Anxiety Stop: 10/21/16 08:28 Last Admin: 10/15/16 09:14 Dose: 0.25 mg Alprazolam (Xanax) 0.25 mg PO Q12 PRN PRN Reason: Anxiety Stop: 10/23/16 10:01 Last Admin: 10/16/16 10:31 Dose: 0.25 mg Cholecalciferol (Vitamin D) 1,000 iu PO DAILY [facility] Last Admin: 10/16/16 08:28 Dose: 1,000 iu Furosemide (Lasix) 20 mg PO DAILY [facility] Last Admin: 10/16/16 08:24 Dose: 20 mg Glyburide (Micronase) 2.5 mg PO DAILY [facility] Last Admin: 10/16/16 08:27 Dose: 2.5 mg Home Med (Alogliptin Herber/Metformin Hcl [Alogliptin-Metformin 12.5-1000]) 1 tab PO BID [facility] Metformin HCl (Glucophage) 1,000 mg PO BID [facility] Last Admin: 10/16/16 08:27 Dose: 1,000 mg Multivitamins/Minerals (Therapeutic-M Tab) 1 tab PO DAILY [facility] Last Admin: 10/16/16 08:24 Dose: 1 tab Pantoprazole Sodium (Protonix Ec Tab) 40 mg PO DAILY [facility] Last Admin: 10/16/16 08:27 Dose: 40 mg Potassium Chloride (Klor-Con 10) 10 meq PO BID [facility] Last Admin: 10/16/16 08:27 Dose: 10 meq Promethazine HCl/Dextromethorphan (Phenergan Dm Syrup) 5 ml PO Q6 PRN PRN Reason: Cough Last Admin: 10/15/16 23:27 Dose: 5 ml Propranolol HCl (Inderal) 10 mg PO DAILY [facility] Last Admin: 10/16/16 08:28 Dose: 10 mg Sitagliptin Phosphate (Januvia) 50 mg PO BID [facility] Last Admin: 10/16/16 08:28 Dose: 50 mg Sucralfate (Carafate Oral Susp) 1 gm PO TID [facility] Last Admin: 10/16/16 08:24 Dose: 1 gm - Labs Labs: 10/15/16 05:30 10/15/16 05:30 PT 14.2 Seconds (9.8-13.1) H 10/14/16 08:50 INR 1.3 (0.9-1.2) H 10/14/16 08:50 APTT 30.8 Seconds (25.6-37.1) 10/14/16 08:50 - Constitutional Appears: Chronically Ill - Head Exam Head Exam: ATRAUMATIC, NORMAL INSPECTION, NORMOCEPHALIC - Eye Exam Eye Exam: EOMI, Normal appearance, PERRL Pupil Exam: NORMAL ACCOMODATION, PERRL - ENT Exam ENT Exam: Mucous Membranes Moist, Normal Exam - Neck Exam Neck Exam: Full ROM, Normal Inspection. absent: Lymphadenopathy - Respiratory Exam Respiratory Exam: Decreased Breath Sounds, NORMAL BREATHING PATTERN - Cardiovascular Exam Cardiovascular Exam: REGULAR RHYTHM, +S1, +S2. absent: Murmur - GI/Abdominal Exam GI & Abdominal Exam: Soft, Normal Bowel Sounds. absent: Tenderness - Rectal Exam Rectal Exam: NORMAL INSPECTION - Extremities Exam Extremities Exam: Full ROM, Normal Capillary Refill, Normal Inspection. absent : Joint Swelling, Pedal Edema - Back Exam Back Exam: NORMAL INSPECTION - Neurological Exam Neurological Exam: Alert, Awake, CN II-XII Intact, Normal Gait, Oriented x3 - Psychiatric Exam Psychiatric exam: Normal Affect, Normal Mood - Skin Skin Exam: Dry, Intact, Normal Color, Warm Assessment and Plan - Assessment and Plan (Free Text) Assessment: LUNG MASS R/O [id number] Plan: CONTINUE PRESENT RX CT GUIDED BX OF LUNG MASS
[2016-10-16 19:32] LABS: FOLATE 9.1 ng/mL
[2016-10-17] MEDS: Sucralfate 1 gm/10 ml Oral Susp UD PO SCH ×3 (08:07→16:15)
[2016-10-17] MEDS: Multivitamin With Minerals Tab PO SCH (08:07)
[2016-10-17] MEDS: Pantoprazole 40 mg EC Tab PO SCH (08:07)
[2016-10-17] MEDS: Potassium Chloride 10 mEq ER Tab PO SCH ×2 (08:11→16:16)
[2016-10-17] MEDS: Promethazine 6.25 MG/5 ML CUP PO PRN ×2 (08:13→20:43)
[2016-10-17 08:22] LABS: TOTAL PROTEIN, SERUM 7.6 g/dL (6.1-8.1)
[2016-10-17 08:37] LABS: BASO % 0.4 % (0.0-2.0); EOS % 1.4 % (0.0-4.0); HEMATOCRIT 27.4 % (34.0-47.0); LYMPH # 0.5 K/uL (1.0-4.3); LYMPH % 22.8 % (20.0-40.0); MEAN CELL VOLUME 84.1 fl (81.0-99.0); MEAN CORPUSCULAR HEMOGLOBIN 27.3 pg (27.0-31.0); MEAN CORPUSCULAR HGB CONC 32.5 g/dL (33.0-37.0); MEAN PLATELET VOLUME 7.8 fl (7.2-11.7); MONO # 0.5 K/uL (0.0-0.8); MONO % 25.1 % (0.0-10.0); NEUT % 50.3 % (50.0-75.0); NRBC % 0.1 % (0.0-0.0); RED CELL DISTRIBUTION WIDTH 18.9 % (11.5-14.5)
[2016-10-17 08:43] LABS: ALB/GLOB RATIO 0.7 (1.0-2.1); ALKALINE PHOSPHATASE 91 U/L (38-126); ALT/SGPT 28 U/L (9-52); AST/SGOT 46 U/L (14-36); BILIRUBIN,TOTAL 0.9 mg/dl (0.2-1.3); BLOOD UREA NITROGEN 9 mg/dl (7-17); CALCIUM 8.8 mg/dL (8.4-10.2); CARBON DIOXIDE 25 mmol/L (22-30); CHLORIDE 102 mmol/L (98-107); GFR AFRICAN-AMERICAN > 60; GLUCOSE,RANDOM 105 mg/dL (65-105); POTASSIUM 3.5 MMOL/L (3.6-5.0); SODIUM 138 mmol/l (132-148); TOTAL PROTEIN 7.8 G/DL (6.3-8.2)
--- NOTE | 2016-10-17 10:36 | CP.PCM.PN ---
Subjective - Date & Time of Evaluation Date of Evaluation: 10/17/16 Time of Evaluation: 10:36 - Subjective Subjective: dogin well, no distress, c/o weakness, fatigue, anxiety. no f/c, nvd/. no cough/ congestion, dyspnea. for bx tomorrow. Objective - Vital Signs/Intake and Output Vital Signs (last 24 hours): Temp Pulse Resp BP Pulse Ox 98.2 F 79 20 131/75 94 L 10/17/16 08:50 10/17/16 08:50 10/17/16 08:50 10/17/16 08:50 10/17/16 08:50 - Medications Medications: Current Medications Acetaminophen (Tylenol 325mg Tab) 325 mg PO Q4 PRN PRN Reason: Fever >100.4 F Last Admin: 10/16/16 23:43 Dose: 325 mg Alprazolam (Xanax) 0.25 mg PO DAILY PRN PRN Reason: Anxiety Stop: 10/21/16 08:28 Last Admin: 10/15/16 09:14 Dose: 0.25 mg Alprazolam (Xanax) 0.25 mg PO Q12 PRN PRN Reason: Anxiety Stop: 10/23/16 10:01 Last Admin: 10/16/16 23:49 Dose: 0.25 mg Cholecalciferol (Vitamin D) 1,000 iu PO DAILY [facility] Last Admin: 10/17/16 08:07 Dose: 1,000 iu Furosemide (Lasix) 20 mg PO DAILY [facility] Last Admin: 10/17/16 08:10 Dose: 20 mg Glyburide (Micronase) 2.5 mg PO DAILY [facility] Last Admin: 10/17/16 08:07 Dose: 2.5 mg Home Med (Alogliptin Herber/Metformin Hcl [Alogliptin-Metformin 12.5-1000]) 1 tab PO BID [facility] Metformin HCl (Glucophage) 1,000 mg PO BID [facility] Last Admin: 10/17/16 08:07 Dose: 1,000 mg Multivitamins/Minerals (Therapeutic-M Tab) 1 tab PO DAILY [facility] Last Admin: 10/17/16 08:07 Dose: 1 tab Pantoprazole Sodium (Protonix Ec Tab) 40 mg PO DAILY [facility] Last Admin: 10/17/16 08:07 Dose: 40 mg Potassium Chloride (Klor-Con 10) 10 meq PO BID [facility] Last Admin: 10/17/16 08:11 Dose: 10 meq Promethazine HCl (Phenergan Syrup) 6.25 mg PO Q6 PRN PRN Reason: Cough Last Admin: 10/17/16 08:13 Dose: 6.25 mg Propranolol HCl (Inderal) 10 mg PO DAILY [facility] Last Admin: 10/17/16 08:07 Dose: 10 mg Sitagliptin Phosphate (Januvia) 50 mg PO BID [facility] Last Admin: 10/17/16 08:07 Dose: 50 mg Sucralfate (Carafate Oral Susp) 1 gm PO TID [facility] Last Admin: 10/17/16 08:07 Dose: 1 gm - Labs Labs: 10/17/16 08:10 10/17/16 08:10 PT 14.2 Seconds (9.8-13.1) H 10/14/16 08:50 INR 1.3 (0.9-1.2) H 10/14/16 08:50 APTT 30.8 Seconds (25.6-37.1) 10/14/16 08:50 - Constitutional Appears: Well, Non-toxic, No Acute Distress - Head Exam Head Exam: ATRAUMATIC, NORMAL INSPECTION, NORMOCEPHALIC - Eye Exam Eye Exam: EOMI, Normal appearance, PERRL Pupil Exam: NORMAL ACCOMODATION, PERRL - ENT Exam ENT Exam: Mucous Membranes Moist, Normal Exam - Neck Exam Neck Exam: Full ROM, Normal Inspection. absent: Lymphadenopathy - Respiratory Exam Respiratory Exam: Clear to Ausculation Bilateral, NORMAL BREATHING PATTERN - Cardiovascular Exam Cardiovascular Exam: REGULAR RHYTHM, RRR, +S1, +S2. absent: Murmur - GI/Abdominal Exam GI & Abdominal Exam: Soft, Normal Bowel Sounds. absent: Tenderness - Extremities Exam Extremities Exam: Full ROM, Normal Capillary Refill, Normal Inspection. absent : Joint Swelling, Pedal Edema - Back Exam Back Exam: NORMAL INSPECTION - Neurological Exam Neurological Exam: Alert, Awake, CN II-XII Intact, Normal Gait, Oriented x3 - Psychiatric Exam Psychiatric exam: Normal Affect, Normal Mood - Skin Skin Exam: Dry, Intact, Normal Color, Warm Assessment and Plan (1) Anemia Status: Acute (2) Elevated troponin Status: Acute (3) Cirrhosis Status: Acute (4) DVT prophylaxis Status: Acute (5) Diabetes type 2, controlled Status: Acute (6) UGIB (upper gastrointestinal bleed) Status: Acute (7) Lung mass Status: Acute - Assessment and Plan (Free Text) Assessment: (1) Anemia Assessment & Plan: r/t mass effect vs chronic, s/p 2 units prbc, will montior, heme/onc Status: Acute (2) Elevated troponin Assessment & Plan: ?? etiology cardio echo Status: Acute (3) Cirrhosis Assessment & Plan: gi monitor labs Status: Acute (4) DVT prophylaxis Assessment & Plan: scd and aehose hold anticoag for bx Status: Acute (5) Diabetes type 2, controlled Assessment & Plan: riss, home meds, fsbg Status: Acute (6) UGIB (upper gastrointestinal bleed) Assessment & Plan: ppi gi Status: Acute (7) Lung mass Assessment & Plan: pulm and heme/onc consult, ir for bx Status: Acute
--- NOTE | 2016-10-17 10:50 | CP.PCM.PN ---
Subjective - Date & Time of Evaluation Date of Evaluation: 10/16/16 Time of Evaluation: 18:30 - Subjective Subjective: Feels weak Objective - Vital Signs/Intake and Output Vital Signs (last 24 hours): Temp Pulse Resp BP Pulse Ox 98.2 F 79 20 131/75 94 L 10/17/16 08:50 10/17/16 08:50 10/17/16 08:50 10/17/16 08:50 10/17/16 08:50 - Medications Medications: Current Medications Acetaminophen (Tylenol 325mg Tab) 325 mg PO Q4 PRN PRN Reason: Fever >100.4 F Last Admin: 10/16/16 23:43 Dose: 325 mg Alprazolam (Xanax) 0.25 mg PO Q12 PRN PRN Reason: Anxiety Stop: 10/23/16 10:01 Last Admin: 10/16/16 23:49 Dose: 0.25 mg Cholecalciferol (Vitamin D) 1,000 iu PO DAILY [facility] Last Admin: 10/17/16 08:07 Dose: 1,000 iu Furosemide (Lasix) 20 mg PO DAILY [facility] Last Admin: 10/17/16 08:10 Dose: 20 mg Glyburide (Micronase) 2.5 mg PO DAILY [facility] Last Admin: 10/17/16 08:07 Dose: 2.5 mg Home Med (Alogliptin Herber/Metformin Hcl [Alogliptin-Metformin 12.5-1000]) 1 tab PO BID [facility] Metformin HCl (Glucophage) 1,000 mg PO BID [facility] Last Admin: 10/17/16 08:07 Dose: 1,000 mg Multivitamins/Minerals (Therapeutic-M Tab) 1 tab PO DAILY [facility] Last Admin: 10/17/16 08:07 Dose: 1 tab Pantoprazole Sodium (Protonix Ec Tab) 40 mg PO DAILY [facility] Last Admin: 10/17/16 08:07 Dose: 40 mg Potassium Chloride (Klor-Con 10) 10 meq PO BID [facility] Last Admin: 10/17/16 08:11 Dose: 10 meq Promethazine HCl (Phenergan Syrup) 6.25 mg PO Q6 PRN PRN Reason: Cough Last Admin: 10/17/16 08:13 Dose: 6.25 mg Propranolol HCl (Inderal) 10 mg PO DAILY [facility] Last Admin: 10/17/16 08:07 Dose: 10 mg Sitagliptin Phosphate (Januvia) 50 mg PO BID [facility] Last Admin: 10/17/16 08:07 Dose: 50 mg Sucralfate (Carafate Oral Susp) 1 gm PO TID [facility] Last Admin: 10/17/16 08:07 Dose: 1 gm - Labs Labs: 10/17/16 08:10 10/17/16 08:10 PT 14.2 Seconds (9.8-13.1) H 10/14/16 08:50 INR 1.3 (0.9-1.2) H 10/14/16 08:50 APTT 30.8 Seconds (25.6-37.1) 10/14/16 08:50 - Head Exam Head Exam: ATRAUMATIC - Eye Exam Eye Exam: Normal appearance - ENT Exam ENT Exam: Mucous Membranes Dry - Respiratory Exam Respiratory Exam: NORMAL BREATHING PATTERN - Cardiovascular Exam Cardiovascular Exam: +S1, +S2 - GI/Abdominal Exam GI & Abdominal Exam: Normal Bowel Sounds - Extremities Exam Extremities Exam: Pedal Edema Assessment and Plan (1) Lung mass Assessment & Plan: for percutaneous biopsy rule out malignancy Status: Acute (2) Pancytopenia Assessment & Plan: splenic sequestration Status: Acute (3) Elevated serum globulin level Assessment & Plan: f/u monoclonal protein w/u Status: Acute (4) Coagulopathy Status: Acute
[2016-10-17] MEDS ORDERED: Potassium Chloride 20 mEq ER Tab PO ONE (12:08)
--- NOTE | 2016-10-18 04:50 | CP.PCM.PN ---
Subjective - Date & Time of Evaluation Date of Evaluation: 10/17/16 Time of Evaluation: 13:00 - Subjective Subjective: patient is anxious regarding lung biopsy. no current chest pain. Objective - Vital Signs/Intake and Output Vital Signs (last 24 hours): Temp Pulse Resp BP Pulse Ox 98.4 F 87 20 121/66 95 10/18/16 00:06 10/18/16 00:06 10/18/16 00:06 10/18/16 00:06 10/18/16 00:06 Intake and Output: 10/17/16 10/18/16 18:59 06:59 Intake Total 960 Output Total 850 Balance 110 - Medications Medications: Current Medications Acetaminophen (Tylenol 325mg Tab) 325 mg PO Q4 PRN PRN Reason: Fever >100.4 F Last Admin: 10/16/16 23:43 Dose: 325 mg Alprazolam (Xanax) 0.25 mg PO Q12 PRN PRN Reason: Anxiety Stop: 10/23/16 10:01 Last Admin: 10/17/16 20:44 Dose: 0.25 mg Cholecalciferol (Vitamin D) 1,000 iu PO DAILY [facility] Last Admin: 10/17/16 08:07 Dose: 1,000 iu Furosemide (Lasix) 20 mg PO DAILY [facility] Last Admin: 10/17/16 08:10 Dose: 20 mg Glyburide (Micronase) 2.5 mg PO DAILY [facility] Last Admin: 10/17/16 08:07 Dose: 2.5 mg Home Med (Alogliptin Herber/Metformin Hcl [Alogliptin-Metformin 12.5-1000]) 1 tab PO BID [facility] Metformin HCl (Glucophage) 1,000 mg PO BID [facility] Last Admin: 10/17/16 16:16 Dose: 1,000 mg Multivitamins/Minerals (Therapeutic-M Tab) 1 tab PO DAILY [facility] Last Admin: 10/17/16 08:07 Dose: 1 tab Pantoprazole Sodium (Protonix Ec Tab) 40 mg PO DAILY [facility] Last Admin: 10/17/16 08:07 Dose: 40 mg Potassium Chloride (Klor-Con 10) 10 meq PO BID [facility] Last Admin: 10/17/16 16:16 Dose: 10 meq Promethazine HCl (Phenergan Syrup) 6.25 mg PO Q6 PRN PRN Reason: Cough Last Admin: 10/17/16 20:43 Dose: 6.25 mg Propranolol HCl (Inderal) 10 mg PO DAILY [facility] Last Admin: 10/17/16 08:07 Dose: 10 mg Sitagliptin Phosphate (Januvia) 50 mg PO BID [facility] Last Admin: 10/17/16 16:16 Dose: 50 mg Sucralfate (Carafate Oral Susp) 1 gm PO TID [facility] Last Admin: 10/17/16 16:15 Dose: 1 gm - Labs Labs: 10/17/16 08:10 10/17/16 08:10 PT 14.2 Seconds (9.8-13.1) H 10/14/16 08:50 INR 1.3 (0.9-1.2) H 10/14/16 08:50 APTT 30.8 Seconds (25.6-37.1) 10/14/16 08:50 - Constitutional Appears: Non-toxic - Head Exam Head Exam: NORMAL INSPECTION - Eye Exam Eye Exam: Normal appearance - ENT Exam ENT Exam: Mucous Membranes Moist - Neck Exam Neck Exam: Full ROM - Respiratory Exam Respiratory Exam: Decreased Breath Sounds - Cardiovascular Exam Cardiovascular Exam: REGULAR RHYTHM - GI/Abdominal Exam GI & Abdominal Exam: Normal Bowel Sounds - Rectal Exam Rectal Exam: Deferred - Extremities Exam Extremities Exam: absent: Pedal Edema - Back Exam Back Exam: NORMAL INSPECTION - Neurological Exam Neurological Exam: Alert - Psychiatric Exam Psychiatric exam: Normal Affect - Skin Skin Exam: Normal Color Assessment and Plan (1) Elevated troponin Assessment & Plan: no evidence of myocardial ischemia Status: Acute (2) Anemia Assessment & Plan: s/p transfusion Status: Acute (3) Lung mass Assessment & Plan: for biopsy. no cardiovascular contraindication Status: Acute
[2016-10-18 05:10] LABS: BASO % 0.4 % (0.0-2.0); HEMATOCRIT 28.2 % (34.0-47.0); LYMPH # 0.6 K/uL (1.0-4.3); LYMPH % 15.9 % (20.0-40.0); MEAN CELL VOLUME 85.3 fl (81.0-99.0); MEAN CORPUSCULAR HEMOGLOBIN 27.4 pg (27.0-31.0); MEAN CORPUSCULAR HGB CONC 32.1 g/dL (33.0-37.0); MEAN PLATELET VOLUME 8.4 fl (7.2-11.7); MONO # 0.7 K/uL (0.0-0.8); MONO % 18.2 % (0.0-10.0); NEUT # 2.4 K/uL (1.8-7.0); NEUT % 64.5 % (50.0-75.0); NRBC % 0.1 % (0.0-0.0); RED CELL DISTRIBUTION WIDTH 18.6 % (11.5-14.5); WHITE BLOOD COUNT 3.7 K/uL (4.8-10.8)
[2016-10-18 05:17] LABS: ALB/GLOB RATIO 0.7 (1.0-2.1); ALKALINE PHOSPHATASE 102 U/L (38-126); ALT/SGPT 35 U/L (9-52); AST/SGOT 49 U/L (14-36); BILIRUBIN,TOTAL 0.9 mg/dl (0.2-1.3); BLOOD UREA NITROGEN 9 mg/dl (7-17); CALCIUM 9.1 mg/dL (8.4-10.2); CARBON DIOXIDE 23 mmol/L (22-30); CHLORIDE 102 mmol/L (98-107); GFR AFRICAN-AMERICAN > 60; GLUCOSE,RANDOM 104 mg/dL (65-105); POTASSIUM 4.2 MMOL/L (3.6-5.0); SODIUM 135 mmol/l (132-148); TOTAL PROTEIN 8.4 G/DL (6.3-8.2)
[2016-10-18 05:39] LABS: PARTIAL THROMBOPLASTIN TIME 33.9 Seconds (25.6-37.1)
--- NOTE | 2016-10-18 09:06 | CP.PCM.PN ---
Subjective - Date & Time of Evaluation Date of Evaluation: 10/18/16 Time of Evaluation: 09:06 - Subjective Subjective: ANXIOUS NO CHEST PAINS/SOB Objective - Vital Signs/Intake and Output Vital Signs (last 24 hours): Temp Pulse Resp BP Pulse Ox 97.2 F L 80 18 143/83 97 10/18/16 08:05 10/18/16 08:05 10/18/16 08:05 10/18/16 08:05 10/18/16 08:05 - Medications Medications: Current Medications Acetaminophen (Tylenol 325mg Tab) 325 mg PO Q4 PRN PRN Reason: Fever >100.4 F Last Admin: 10/16/16 23:43 Dose: 325 mg Alprazolam (Xanax) 0.25 mg PO Q12 PRN PRN Reason: Anxiety Stop: 10/23/16 10:01 Last Admin: 10/17/16 20:44 Dose: 0.25 mg Cholecalciferol (Vitamin D) 1,000 iu PO DAILY [facility] Last Admin: 10/17/16 08:07 Dose: 1,000 iu Furosemide (Lasix) 20 mg PO DAILY [facility] Last Admin: 10/17/16 08:10 Dose: 20 mg Glyburide (Micronase) 2.5 mg PO DAILY [facility] Last Admin: 10/17/16 08:07 Dose: 2.5 mg Home Med (Alogliptin Herber/Metformin Hcl [Alogliptin-Metformin 12.5-1000]) 1 tab PO BID [facility] Metformin HCl (Glucophage) 1,000 mg PO BID [facility] Last Admin: 10/17/16 16:16 Dose: 1,000 mg Multivitamins/Minerals (Therapeutic-M Tab) 1 tab PO DAILY [facility] Last Admin: 10/17/16 08:07 Dose: 1 tab Pantoprazole Sodium (Protonix Ec Tab) 40 mg PO DAILY [facility] Last Admin: 10/17/16 08:07 Dose: 40 mg Potassium Chloride (Klor-Con 10) 10 meq PO BID [facility] Last Admin: 10/17/16 16:16 Dose: 10 meq Promethazine HCl (Phenergan Syrup) 6.25 mg PO Q6 PRN PRN Reason: Cough Last Admin: 10/17/16 20:43 Dose: 6.25 mg Propranolol HCl (Inderal) 10 mg PO DAILY [facility] Last Admin: 10/17/16 08:07 Dose: 10 mg Sitagliptin Phosphate (Januvia) 50 mg PO BID [facility] Last Admin: 10/17/16 16:16 Dose: 50 mg Sucralfate (Carafate Oral Susp) 1 gm PO TID [facility] Last Admin: 10/17/16 16:15 Dose: 1 gm - Labs Labs: 10/18/16 04:10 10/18/16 04:10 PT 13.9 Seconds (9.8-13.1) H 10/18/16 04:10 INR 1.2 (0.9-1.2) 10/18/16 04:10 APTT 33.9 Seconds (25.6-37.1) 10/18/16 04:10 - Constitutional Appears: Chronically Ill - Head Exam Head Exam: ATRAUMATIC, NORMAL INSPECTION, NORMOCEPHALIC - Eye Exam Eye Exam: EOMI, Normal appearance, PERRL Pupil Exam: NORMAL ACCOMODATION, PERRL - ENT Exam ENT Exam: Mucous Membranes Moist, Normal Exam - Neck Exam Neck Exam: Full ROM, Normal Inspection. absent: Lymphadenopathy - Respiratory Exam Respiratory Exam: Prolonged Expiratory Phase, NORMAL BREATHING PATTERN - Cardiovascular Exam Cardiovascular Exam: REGULAR RHYTHM, +S1, +S2. absent: Murmur - GI/Abdominal Exam GI & Abdominal Exam: Soft, Normal Bowel Sounds. absent: Tenderness - Rectal Exam Rectal Exam: NORMAL INSPECTION - Extremities Exam Extremities Exam: Full ROM, Normal Capillary Refill, Normal Inspection. absent : Joint Swelling, Pedal Edema - Back Exam Back Exam: NORMAL INSPECTION - Neurological Exam Neurological Exam: Alert, Awake, CN II-XII Intact, Normal Gait, Oriented x3 - Psychiatric Exam Psychiatric exam: Normal Affect, Normal Mood - Skin Skin Exam: Dry, Intact, Normal Color, Warm Assessment and Plan - Assessment and Plan (Free Text) Assessment: LUNG/MEDIASTENAL MASS--R/O MALIGNANCY Plan: FOR CT GUIDED BIOPSY OF LUNG MASS TODAY WILL CONTINUE TO FOLLOW
[2016-10-18] MEDS: Sucralfate 1 gm/10 ml Oral Susp UD PO SCH ×3 (09:15→17:24)
[2016-10-18] MEDS: Potassium Chloride 10 mEq ER Tab PO SCH ×2 (09:17→17:25)
[2016-10-18] MEDS: Pantoprazole 40 mg EC Tab PO SCH (09:18)
[2016-10-18] MEDS: Multivitamin With Minerals Tab PO SCH (09:18)
--- NOTE | 2016-10-18 11:19 | CP.PCM.PN ---
Subjective - Date & Time of Evaluation Date of Evaluation: 10/18/16 Time of Evaluation: 11:18 - Subjective Subjective: no complaints except anxiety about procedure, ready to be dc home after. no f/c , n/v/d bw noted Objective - Vital Signs/Intake and Output Vital Signs (last 24 hours): Temp Pulse Resp BP Pulse Ox 97.2 F L 80 18 143/73 97 10/18/16 08:05 10/18/16 09:16 10/18/16 08:05 10/18/16 09:17 10/18/16 08:05 - Medications Medications: Current Medications Acetaminophen (Tylenol 325mg Tab) 325 mg PO Q4 PRN PRN Reason: Fever >100.4 F Last Admin: 10/16/16 23:43 Dose: 325 mg Alprazolam (Xanax) 0.25 mg PO Q12 PRN PRN Reason: Anxiety Stop: 10/23/16 10:01 Last Admin: 10/17/16 20:44 Dose: 0.25 mg Cholecalciferol (Vitamin D) 1,000 iu PO DAILY [facility] Last Admin: 10/18/16 09:18 Dose: Not Given Furosemide (Lasix) 20 mg PO DAILY [facility] Last Admin: 10/18/16 09:17 Dose: Not Given Glyburide (Micronase) 2.5 mg PO DAILY [facility] Last Admin: 10/18/16 09:18 Dose: Not Given Home Med (Alogliptin Herber/Metformin Hcl [Alogliptin-Metformin 12.5-1000]) 1 tab PO BID [facility] Metformin HCl (Glucophage) 1,000 mg PO BID [facility] Last Admin: 10/18/16 09:17 Dose: Not Given Multivitamins/Minerals (Therapeutic-M Tab) 1 tab PO DAILY [facility] Last Admin: 10/18/16 09:18 Dose: Not Given Pantoprazole Sodium (Protonix Ec Tab) 40 mg PO DAILY [facility] Last Admin: 10/18/16 09:18 Dose: Not Given Potassium Chloride (Klor-Con 10) 10 meq PO BID [facility] Last Admin: 10/18/16 09:17 Dose: Not Given Promethazine HCl (Phenergan Syrup) 6.25 mg PO Q6 PRN PRN Reason: Cough Last Admin: 10/17/16 20:43 Dose: 6.25 mg Propranolol HCl (Inderal) 10 mg PO DAILY [facility] Last Admin: 10/18/16 09:16 Dose: Not Given Sitagliptin Phosphate (Januvia) 50 mg PO BID [facility] Last Admin: 10/18/16 09:17 Dose: Not Given Sucralfate (Carafate Oral Susp) 1 gm PO TID [facility] Last Admin: 10/18/16 09:15 Dose: Not Given - Labs Labs: 10/18/16 04:10 10/18/16 04:10 PT 13.9 Seconds (9.8-13.1) H 10/18/16 04:10 INR 1.2 (0.9-1.2) 10/18/16 04:10 APTT 33.9 Seconds (25.6-37.1) 10/18/16 04:10 - Constitutional Appears: Well, Non-toxic, No Acute Distress - Head Exam Head Exam: ATRAUMATIC, NORMAL INSPECTION, NORMOCEPHALIC - Eye Exam Eye Exam: EOMI, Normal appearance, PERRL Pupil Exam: NORMAL ACCOMODATION, PERRL - ENT Exam ENT Exam: Mucous Membranes Moist, Normal Exam - Neck Exam Neck Exam: Full ROM, Normal Inspection. absent: Lymphadenopathy - Respiratory Exam Respiratory Exam: Clear to Ausculation Bilateral, NORMAL BREATHING PATTERN - Cardiovascular Exam Cardiovascular Exam: REGULAR RHYTHM, RRR, +S1, +S2. absent: Murmur - GI/Abdominal Exam GI & Abdominal Exam: Soft, Normal Bowel Sounds. absent: Tenderness - Extremities Exam Extremities Exam: Full ROM, Normal Capillary Refill, Normal Inspection. absent : Joint Swelling, Pedal Edema - Back Exam Back Exam: NORMAL INSPECTION - Neurological Exam Neurological Exam: Alert, Awake, CN II-XII Intact, Normal Gait, Oriented x3 - Psychiatric Exam Psychiatric exam: Normal Affect, Normal Mood - Skin Skin Exam: Dry, Intact, Normal Color, Warm Assessment and Plan (1) Anemia Status: Acute (2) Elevated troponin Status: Acute (3) Cirrhosis Status: Acute (4) DVT prophylaxis Status: Acute (5) Diabetes type 2, controlled Status: Acute (6) UGIB (upper gastrointestinal bleed) Status: Acute (7) Lung mass Status: Acute - Assessment and Plan (Free Text) Assessment: (1) Anemia Assessment & Plan: r/t mass effect vs chronic, s/p 2 units prbc, will montior, heme/onc Status: Acute (2) Elevated troponin Assessment & Plan: ?? etiology cardio echo Status: Acute (3) Cirrhosis Assessment & Plan: gi monitor labs Status: Acute (4) DVT prophylaxis Assessment & Plan: scd and aehose hold anticoag for bx Status: Acute (5) Diabetes type 2, controlled Assessment & Plan: riss, home meds, fsbg Status: Acute (6) UGIB (upper gastrointestinal bleed) Assessment & Plan: ppi gi Status: Acute (7) Lung mass Assessment & Plan: pulm and heme/onc consult, ir for bx Status: Acute
--- NOTE | 2016-10-18 15:03 | PCM.SURG1 ---
Surgeon's Initial Post Op Note - Surgeon's Notes Surgeon: Lorenzo Hernandez MD Bundler: NONE Type of Anesthesia: IV Sedation Pre-Operative Diagnosis: Lung cancer Operative Findings: CT showed large right apical mass w mediastinal extension. Post-Operative Diagnosis: Lung cancer Operation Performed: CT guided right lung mass biopsy. Three 20 gauge core specimen obtained. Specimen/Specimens Removed: 20 gauge core x 3 Estimated Blood Loss: EBL {In ML}: 0 Blood Products Given: N/A Drains Used: No Drains Post-Op Condition: Fair Date of Surgery/Procedure: 10/18/16 Time of Surgery/Procedure: 15:00
[2016-10-18] MEDS ORDERED: Sodium Chloride 0.9% 1,000 ML IV ONE (15:10)
[2016-10-18] MEDS ORDERED: HYDROmorphone 0.5 mg/0.5 ml ISec IVP PRN (15:34)
[2016-10-18] MEDS ORDERED: Sodium Chloride 0.9% 1,000 ML IV SCH (15:45)
--- NOTE | 2016-10-18 19:04 | RAD ---
HISTORY: Status post right lung mass biopsy. COMPARISON: Chest CT with contrast performed 10/14/16, chest x-ray performed 10/14/16 TECHNIQUE: Chest, one view. FINDINGS: LUNGS: Large right apical masslike opacity ; correlate with lung guided biopsy performed the same day. Please note that chest x-ray has limited sensitivity for the detection of pulmonary masses. PLEURA: No significant pleural effusion identified. No definite pneumothorax . CARDIOVASCULAR: The cardiomediastinal silhouette appears within normal limits of size. OSSEOUS STRUCTURES: No acute osseous abnormality identified. VISUALIZED UPPER ABDOMEN: Unremarkable. OTHER FINDINGS: None. IMPRESSION: Large right apical masslike opacity re-identified. Recommend correlation with biopsy results performed the same day.
[2016-10-18] MEDS: Promethazine 6.25 MG/5 ML CUP PO PRN (22:37)
[2016-10-19 00:47] LABS: KAPPA/LAMBDA FREE RATIO 1.33 (0.26-1.65)
[2016-10-19 05:21] VITALS: O2SAT 96
--- NOTE | 2016-10-19 07:15 | CP.PCM.PN ---
Subjective - Date & Time of Evaluation Date of Evaluation: 10/19/16 Time of Evaluation: 07:15 Objective - Vital Signs/Intake and Output Vital Signs (last 24 hours): Temp Pulse Resp BP Pulse Ox 98.1 F 89 20 148/87 96 10/19/16 05:21 10/19/16 05:21 10/19/16 05:21 10/19/16 05:21 10/19/16 05:21 - Medications Medications: Current Medications Acetaminophen (Tylenol 325mg Tab) 325 mg PO Q4 PRN PRN Reason: Fever >100.4 F Last Admin: 10/18/16 15:30 Dose: 325 mg Alprazolam (Xanax) 0.25 mg PO Q12 PRN PRN Reason: Anxiety Stop: 10/23/16 10:01 Last Admin: 10/18/16 22:37 Dose: 0.25 mg Cholecalciferol (Vitamin D) 1,000 iu PO DAILY [facility] Last Admin: 10/18/16 09:18 Dose: Not Given Furosemide (Lasix) 20 mg PO DAILY [facility] Last Admin: 10/18/16 09:17 Dose: Not Given Glyburide (Micronase) 2.5 mg PO DAILY [facility] Last Admin: 10/18/16 09:18 Dose: Not Given Home Med (Alogliptin Herber/Metformin Hcl [Alogliptin-Metformin 12.5-1000]) 1 tab PO BID [facility] Sodium Chloride (Sodium Chloride 0.9%) 1,000 mls @ 100 mls/hr IV .Q10H [facility] Metformin HCl (Glucophage) 1,000 mg PO BID [facility] Last Admin: 10/18/16 18:39 Dose: Not Given Multivitamins/Minerals (Therapeutic-M Tab) 1 tab PO DAILY [facility] Last Admin: 10/18/16 09:18 Dose: Not Given Pantoprazole Sodium (Protonix Ec Tab) 40 mg PO DAILY [facility] Last Admin: 10/18/16 09:18 Dose: Not Given Potassium Chloride (Klor-Con 10) 10 meq PO BID [facility] Last Admin: 10/18/16 17:25 Dose: 10 meq Promethazine HCl (Phenergan Syrup) 6.25 mg PO Q6 PRN PRN Reason: Cough Last Admin: 10/18/16 22:37 Dose: 6.25 mg Propranolol HCl (Inderal) 10 mg PO DAILY [facility] Last Admin: 10/18/16 09:16 Dose: Not Given Sitagliptin Phosphate (Januvia) 50 mg PO BID [facility] Last Admin: 10/18/16 18:39 Dose: Not Given Sucralfate (Carafate Oral Susp) 1 gm PO TID [facility] Last Admin: 10/18/16 17:24 Dose: 1 gm - Labs Labs: 10/18/16 04:10 10/18/16 04:10 PT 13.9 Seconds (9.8-13.1) H 10/18/16 04:10 INR 1.2 (0.9-1.2) 10/18/16 04:10 APTT 33.9 Seconds (25.6-37.1) 10/18/16 04:10 Assessment and Plan (1) Anemia Status: Acute (2) Elevated troponin Status: Acute (3) Cirrhosis Status: Acute (4) DVT prophylaxis Status: Acute (5) Diabetes type 2, controlled Status: Acute (6) UGIB (upper gastrointestinal bleed) Status: Acute (7) Lung mass Status: Acute
[2016-10-19 07:20] LABS: BASO % 0.6 % (0.0-2.0); EOS % 1.1 % (0.0-4.0); HEMATOCRIT 28.2 % (34.0-47.0); LYMPH # 0.4 K/uL (1.0-4.3); LYMPH % 15.4 % (20.0-40.0); MEAN CELL VOLUME 85.1 fl (81.0-99.0); MEAN CORPUSCULAR HEMOGLOBIN 27.5 pg (27.0-31.0); MEAN CORPUSCULAR HGB CONC 32.3 g/dL (33.0-37.0); MEAN PLATELET VOLUME 8.2 fl (7.2-11.7); MONO # 0.6 K/uL (0.0-0.8); MONO % 21.4 % (0.0-10.0); NEUT # 1.7 K/uL (1.8-7.0); NEUT % 61.5 % (50.0-75.0); PLATELET COUNT 118 K/uL (130-400); RED CELL DISTRIBUTION WIDTH 18.6 % (11.5-14.5); WHITE BLOOD COUNT 2.8 K/uL (4.8-10.8)
[2016-10-19 07:32] LABS: ALKALINE PHOSPHATASE 96 U/L (38-126); ALT/SGPT 31 U/L (9-52); AST/SGOT 53 U/L (14-36); BLOOD UREA NITROGEN 7 mg/dl (7-17); CALCIUM 8.8 mg/dL (8.4-10.2); CARBON DIOXIDE 25 mmol/L (22-30); CHLORIDE 100 mmol/L (98-107); GFR AFRICAN-AMERICAN > 60; GLUCOSE,RANDOM 140 mg/dL (65-105); POTASSIUM 3.8 MMOL/L (3.6-5.0); SODIUM 137 mmol/l (132-148); TOTAL PROTEIN 8.4 G/DL (6.3-8.2)
[2016-10-19 07:36] LABS: ALB/GLOB RATIO 0.8 (1.0-2.1)
[2016-10-19 08:06] VITALS: BP 136/81; PULSE 88; RESP 18; TEMP 98.5
[2016-10-19] MEDS: Sucralfate 1 gm/10 ml Oral Susp UD PO SCH (08:26)
[2016-10-19] MEDS: Potassium Chloride 10 mEq ER Tab PO SCH (08:28)
[2016-10-19] MEDS: Multivitamin With Minerals Tab PO SCH (08:29)
[2016-10-19] MEDS: Pantoprazole 40 mg EC Tab PO SCH (08:29)
--- NOTE | 2016-10-19 08:43 | CP.PCM.DIS ---
Provider - Provider Date of Admission: 10/13/16 23:34 Attending physician: Jayna Peterson MD Time Spent in preparation of Discharge (in minutes): 15 Diagnosis - Discharge Diagnosis (1) Anemia Status: Acute Priority: High (2) Elevated troponin Status: Acute (3) Cirrhosis Status: Acute (4) DVT prophylaxis Status: Acute (5) Diabetes type 2, controlled Status: Acute (6) UGIB (upper gastrointestinal bleed) Status: Acute Priority: High (7) Lung mass Status: Acute Hospital Course - Lab Results Lab Results: Most Recent Lab Values WBC 2.8 K/uL (4.8-10.8) L 10/19/16 05:20 RBC 3.32 Mil/uL (3.80-5.20) L 10/19/16 05:20 Hgb 9.1 g/dL (12.0-16.0) L 10/19/16 05:20 Hct 28.2 % (34.0-47.0) L 10/19/16 05:20 MCV 85.1 fl (81.0-99.0) 10/19/16 05:20 MCH 27.5 pg (27.0-31.0) 10/19/16 05:20 MCHC 32.3 g/dL (33.0-37.0) L 10/19/16 05:20 RDW 18.6 % (11.5-14.5) H 10/19/16 05:20 Plt Count 118 K/uL (130-400) L 10/19/16 05:20 MPV 8.2 fl (7.2-11.7) 10/19/16 05:20 Neut % (Auto) 61.5 % (50.0-75.0) 10/19/16 05:20 Lymph % (Auto) 15.4 % (20.0-40.0) L 10/19/16 05:20 Craig % (Auto) 21.4 % (0.0-10.0) H 10/19/16 05:20 Eos % (Auto) 1.1 % (0.0-4.0) 10/19/16 05:20 Baso % (Auto) 0.6 % (0.0-2.0) 10/19/16 05:20 Neut # 1.7 K/uL (1.8-7.0) L 10/19/16 05:20 Lymph # 0.4 K/uL (1.0-4.3) L 10/19/16 05:20 Craig # 0.6 K/uL (0.0-0.8) 10/19/16 05:20 Eos # 0.0 K/uL (0.0-0.7) 10/19/16 05:20 Baso # 0.0 K/uL (0.0-0.2) 10/19/16 05:20 Neutrophils % (Manual) 58 % (42-75) 10/15/16 05:30 Lymphocytes % (Manual) 19 % (20-50) L 10/15/16 05:30 Monocytes % (Manual) 23 % (0-10) H 10/15/16 05:30 Platelet Estimate Decreased (NORMAL) L 10/15/16 05:30 Anisocytosis (manual) Moderate 10/15/16 05:30 Rouleaux Slight 10/15/16 05:30 Retic Count 2.3 % (0.5-1.5) H 10/16/16 08:00 PT 13.9 Seconds (9.8-13.1) H 10/18/16 04:10 INR 1.2 (0.9-1.2) 10/18/16 04:10 APTT 33.9 Seconds (25.6-37.1) 10/18/16 04:10 Sodium 137 mmol/l (132-148) 10/19/16 05:20 Potassium 3.8 MMOL/L (3.6-5.0) 10/19/16 05:20 Chloride 100 mmol/L (98-107) 10/19/16 05:20 Carbon Dioxide 25 mmol/L (22-30) 10/19/16 05:20 Anion Gap 16 (10-20) 10/19/16 05:20 BUN 7 mg/dl (7-17) 10/19/16 05:20 Creatinine 0.7 mg/dL (0.7-1.2) 10/19/16 05:20 Est GFR ( Amer) > 60 10/19/16 05:20 Est GFR (Non-Af Amer) > 60 10/19/16 05:20 POC Glucose (mg/dL) 123 mg/dL (65-110) H 10/19/16 05:00 Random Glucose 140 mg/dL (65-105) H 10/19/16 05:20 Calcium 8.8 mg/dL (8.4-10.2) 10/19/16 05:20 Ferritin 85.2 ng/mL 10/16/16 08:00 Total Bilirubin 1.0 mg/dl (0.2-1.3) 10/19/16 05:20 AST 53 U/L (14-36) H 10/19/16 05:20 ALT 31 U/L (9-52) 10/19/16 05:20 Alkaline Phosphatase 96 U/L (38-126) 10/19/16 05:20 Lactate Dehydrogenase 501 U/L (313-618) 10/16/16 08:00 Troponin I 0.1770 ng/mL (0.00-0.120) H* 10/14/16 14:57 Total Protein 8.4 G/DL (6.3-8.2) H 10/19/16 05:20 Total Protein (PEP) 7.6 g/dL (6.1-8.1) 10/16/16 08:00 Albumin 3.6 g/dL (3.5-5.0) 10/19/16 05:20 Globulin 4.8 gm/dL (2.2-3.9) H 10/19/16 05:20 Albumin/Globulin Ratio 0.8 (1.0-2.1) L 10/19/16 05:20 Lipase 208 U/L (23-300) 10/13/16 21:40 Vitamin B12 409 pg/mL (239-931) 10/16/16 08:00 Folate 9.1 ng/mL 10/16/16 08:00 Stool Occult Blood Negative (NEGATIVE) 10/14/16 23:20 Kamas/Lambda Light Chain (()) 10/16/16 08:00 Free Kamas Light Chains 107.2 mg/L (3.3-19.4) H 10/16/16 08:00 Free Lambda Light Chain 80.7 mg/L (5.7-26.3) H 10/16/16 08:00 Free Kamas/Lambda Ratio 1.33 (0.26-1.65) 10/16/16 08:00 HIV 1&2 Antibody Screen Negative (NEGATIVE) 10/16/16 08:00 Blood Type A POSITIVE 10/13/16 21:40 Antibody Screen Negative 10/13/16 21:40 Crossmatch See Detail 10/13/16 21:40 BBK History Checked Patient has bt 10/13/16 21:40 Discharge Exam - Head Exam Head Exam: ATRAUMATIC, NORMAL INSPECTION, NORMOCEPHALIC - Eye Exam Eye Exam: EOMI, Normal appearance, PERRL Pupil Exam: NORMAL ACCOMODATION, PERRL - Respiratory Exam Respiratory Exam: Clear to PA & Lateral, NORMAL BREATHING PATTERN, UNREMARKABLE - Cardiovascular Exam Cardiovascular Exam: REGULAR RHYTHM, RRR, +S1, +S2 - GI/Abdominal Exam GI & Abdominal Exam: Normal Bowel Sounds, Soft, Unremarkable - Extremities Exam Extremities exam: full ROM, normal capillary refill, normal inspection, pedal pulses present - Back Exam Back exam: FULL ROM - Neurological Exam Neurological exam: Alert, CN II-XII Intact, Normal Gait, Oriented x3, Reflexes Normal - Psychiatric Exam Psychiatric exam: Normal Affect, Normal Mood - Skin Skin Exam: Dry, Intact, Normal Color, Warm Discharge Plan - Discharge Medications Prescriptions: Promethazine [Phenergan Syrup] 6.25 mg PO Q6 PRN #250 ml PRN Reason: Cough - Follow Up Plan Condition: GUARDED Disposition: HOME/ ROUTINE Additional Instructions: doing well no complaints. no f/c, n/v/d fianl dx-gib, lung mass, elev trop s/p lung bx, pending report, cxr post bx noted. f/u rmg and heme/onc for report
--- NOTE | 2016-10-19 09:36 | CP.PCM.PN ---
Subjective - Date & Time of Evaluation Date of Evaluation: 10/18/16 Time of Evaluation: 20:00 - Subjective Subjective: No complaints, tolerated biopsy well. Objective - Vital Signs/Intake and Output Vital Signs (last 24 hours): Temp Pulse Resp BP Pulse Ox 98.5 F 88 18 136/81 96 10/19/16 08:06 10/19/16 08:27 10/19/16 08:06 10/19/16 08:28 10/19/16 08:06 - Medications Medications: Current Medications Acetaminophen (Tylenol 325mg Tab) 325 mg PO Q4 PRN PRN Reason: Fever >100.4 F Last Admin: 10/18/16 15:30 Dose: 325 mg Alprazolam (Xanax) 0.25 mg PO Q12 PRN PRN Reason: Anxiety Stop: 10/23/16 10:01 Last Admin: 10/18/16 22:37 Dose: 0.25 mg Cholecalciferol (Vitamin D) 1,000 iu PO DAILY [facility] Last Admin: 10/19/16 08:29 Dose: 1,000 iu Furosemide (Lasix) 20 mg PO DAILY [facility] Last Admin: 10/19/16 08:28 Dose: 20 mg Glyburide (Micronase) 2.5 mg PO DAILY [facility] Last Admin: 10/19/16 08:29 Dose: 2.5 mg Home Med (Alogliptin Herber/Metformin Hcl [Alogliptin-Metformin 12.5-1000]) 1 tab PO BID [facility] Sodium Chloride (Sodium Chloride 0.9%) 1,000 mls @ 100 mls/hr IV .Q10H [facility] Metformin HCl (Glucophage) 1,000 mg PO BID [facility] Last Admin: 10/19/16 08:27 Dose: 1,000 mg Multivitamins/Minerals (Therapeutic-M Tab) 1 tab PO DAILY [facility] Last Admin: 10/19/16 08:29 Dose: 1 tab Pantoprazole Sodium (Protonix Ec Tab) 40 mg PO DAILY [facility] Last Admin: 10/19/16 08:29 Dose: 40 mg Potassium Chloride (Klor-Con 10) 10 meq PO BID [facility] Last Admin: 10/19/16 08:28 Dose: 10 meq Promethazine HCl (Phenergan Syrup) 6.25 mg PO Q6 PRN PRN Reason: Cough Last Admin: 06/26/17 22:37 Dose: 6.25 mg Propranolol HCl (Inderal) 10 mg PO DAILY [facility] Last Admin: 10/19/16 08:27 Dose: 10 mg Sitagliptin Phosphate (Januvia) 50 mg PO BID [facility] Last Admin: 10/19/16 08:29 Dose: 50 mg Sucralfate (Carafate Oral Susp) 1 gm PO TID [facility] Last Admin: 10/19/16 08:26 Dose: 1 gm - Labs Labs: 10/19/16 05:20 10/19/16 05:20 PT 13.9 Seconds (9.8-13.1) H 10/18/16 04:10 INR 1.2 (0.9-1.2) 10/18/16 04:10 APTT 33.9 Seconds (25.6-37.1) 10/18/16 04:10 - Head Exam Head Exam: ATRAUMATIC - Eye Exam Eye Exam: Normal appearance - ENT Exam ENT Exam: Mucous Membranes Dry - Respiratory Exam Respiratory Exam: NORMAL BREATHING PATTERN - Cardiovascular Exam Cardiovascular Exam: +S1, +S2 - GI/Abdominal Exam GI & Abdominal Exam: Normal Bowel Sounds - Extremities Exam Extremities Exam: Normal Inspection Assessment and Plan (1) Lung mass Assessment & Plan: s/p biopsy outpatient f/u Status: Acute (2) Pancytopenia Assessment & Plan: ?cirrhosis with splenic sequestration Status: Acute (3) Elevated serum globulin level Assessment & Plan: f/u SPEP Status: Acute (4) Coagulopathy Status: Acute
[2016-10-19 10:49] LABS: BASOPHIL 1 % (0-2); NEUTROPHIL 65 % (42-75); TOTAL CELLS COUNTED 100
[2016-10-19 11:13] LABS: LARGE PLATELETS PRESENT
[2016-10-19 20:21] LABS: BETA 1 GLOBULIN 0.7 g/dL (0.4-0.6); BETA 2 GLOBULIN 0.9 g/dL (0.2-0.5); GAMMA GLOBULIN 1.8 g/dL (0.8-1.7)
--- NOTE | 2016-10-20 11:55 | CT ---
PROCEDURE: Date of procedure: 10/18/2216 Procedure: 1. CT-guided lung mass biopsy, CPT [address] Guidance for biopsy, [id number] Medications: The patient was sedated by anesthesiologist along with physiologic monitoring. HISTORY: Right upper lobe lung mass TECHNIQUE: Following informed consent, the Pt's chest was marked. The Pt was placed prone on the CT table and procedure time out was performed. A noncontrast CT scan was performed. Noncontrast CT scan confirmed the presence of a right apical mass with mediastinal extension. A skin localizer was placed on the patient's right back and a repeat CT scan was performed. The skin was marked, prepped, and draped in the usual sterile fashion. After the skin was anesthetized with lidocaine and the patient sedated by the anesthesiologist, a 20 gauge core needle was advanced percutaneously under direct CT guidance into the mass. Upon confirmation of needle position, three 20-gauge core specimens were obtained and sent for routine pathology. The needle was removed and a xeroform dressing was applied. A post biopsy CT scan showed no pneumothorax. IMPRESSION: CT guided core biopsy right lung mass.
== END 2016-10-19 10:39 | disposition home or self-care (01) | DRG 395 ==
LOC: H.ER 20:48 → H.ERHOLD 23:34 → H.TEL 10-14 02:26
PROVIDERS: ADMIT Family Medicine; ATTEND Family Medicine
PROC: 30233N1 Transfusion of Nonautologous Red Blood Cells into Peripheral Vein, Percutaneous Approach (ICD-10-PCS; 2016-10-14)
PROC: BB4CZZZ Ultrasonography of Mediastinum (ICD-10-PCS; 2016-10-18)
PROC: 0BBC3ZX Excision of Right Upper Lung Lobe, Percutaneous Approach, Diagnostic (ICD-10-PCS; principal; 2016-10-18 14:30)
DX: D64.89 Other specified anemias (principal); D68.9 Coagulation defect, unspecified; K74.60 Unspecified cirrhosis of liver; D61.818 Other pancytopenia; R91.8 Other nonspecific abnormal finding of lung field; I85.00 Esophageal varices without bleeding; E11.9 Type 2 diabetes mellitus without complications; I10 Essential (primary) hypertension; K76.6 Portal hypertension; F41.9 Anxiety disorder, unspecified; L40.9 Psoriasis, unspecified; F17.210 Nicotine dependence, cigarettes, uncomplicated

== ENCOUNTER 2016-11-30 09:45 | Inpatient (IN) | payer MEDICAID ==
[2016-11-30 09:46] VITALS: BMI 31.3
[2016-11-30] MEDS ORDERED: Sodium Chloride 0.9% 1,000 ML IV STA ×2 (09:59→13:39)
[2016-11-30 10:26] LABS: BASO % 0.7 % (0.0-2.0); EOS % 0.4 % (0.0-4.0); HEMOGLOBIN 11.6 g/dL (12.0-16.0); LYMPH # 0.8 K/uL (1.0-4.3); LYMPH % 14.9 % (20.0-40.0); MEAN CELL VOLUME 86.1 fl (81.0-99.0); MEAN CORPUSCULAR HEMOGLOBIN 28.4 pg (27.0-31.0); MEAN PLATELET VOLUME 9.4 fl (7.2-11.7); MONO % 18.1 % (0.0-10.0); NEUT # 3.6 K/uL (1.8-7.0); NEUT % 65.9 % (50.0-75.0); NRBC % 0.2 % (0.0-0.0); RBC 4.09 Mil/uL (3.80-5.20); RED CELL DISTRIBUTION WIDTH 18.1 % (11.5-14.5); WHITE BLOOD COUNT 5.5 K/uL (4.8-10.8)
[2016-11-30 10:40] LABS: ALBUMIN 4.3 g/dL (3.5-5.0); ALT/SGPT 25 U/L (9-52); AST/SGOT 99 U/L (14-36); BLOOD UREA NITROGEN 19 mg/dl (7-17); CALCIUM 10.1 mg/dL (8.4-10.2); GFR AFRICAN-AMERICAN > 60; GFR NON-AFRICAN AMERICAN > 60; INR 1.6 (0.9-1.2); PROTHROMBIN TIME 17.1 Seconds (9.8-13.1)
[2016-11-30 10:42] LABS: ALB/GLOB RATIO 0.7 (1.0-2.1)
--- NOTE | 2016-11-30 10:54 | ED PDOC ---
HPI: General Adult Time Seen by Provider: 11/30/16 09:53 Chief Complaint (Nursing): Seizure Chief Complaint (Provider): decreased responsiveness History Per: Patient, Family History/Exam Limitations: no limitations Onset/Duration Of Symptoms: Hrs Have you had recent travel within the past 21 days to any of the following countries: [place], [place], [place] or [place]?: No Recently: Treated By A Physician, Hospitalized Additional Complaint(s): The patient is a 51yo female, hx of cirrhosis, DM, lung mass, is currently under workup for lung mass with recent admission to [place] [facility] for low platelets and possible seizure. Patient present now after he family member found her with brief period of decreased responsiveness; report patient was "staring at the wall" but deny any convulsive activity. Patient / family does report that two days ago, she fell striking her head and has had poor PO intake for last week. She denies any headache, changes in speech, chest pain, shortness of breath. PCP: Be Brito Past Medical History Reviewed: Historical Data, Nursing Documentation, Vital Signs Vital Signs: Last Vital Signs Temp 98.7 F 11/30/16 12:30 Pulse 89 11/30/16 18:09 Resp 16 11/30/16 18:09 BP 135/79 11/30/16 18:09 Pulse Ox 97 11/30/16 18:09 - Medical History PMH: Anemia, Anxiety, Depression, Diabetes, Gastritis, HTN Denies: HIV, Chronic Kidney Disease - Surgical History Surgical History: Endoscopy (WITH BANDING), - Family History Family History: States: Diabetes, Hypertension - Home Medications Home Medications: Ambulatory Orders Medication Instructions Recorded Furosemide [Lasix] 20 mg PO DAILY 07/18/14 Alogliptin Herber/Metformin HCl 1 tab PO BID 10/14/16 [Alogliptin-Metformin 12.5-1000] Potassium Chloride [Klor-Con M10] 10 meq PO Q48H 10/14/16 Albuterol 0.083% [Albuterol 0.083% 3 ml IH Q6H PRN 11/30/16 Inhal Addie (2.5 mg/3 ml) UD] Ipratropium 0.02% [Atrovent] 2.5 ml IH Q6H PRN 11/30/16 Nadolol [Corgard] 10 mg PO DAILY 11/30/16 Pantoprazole Sodium [Protonix] 40 mg PO DAILY 11/30/16 Spironolactone [Aldactone] 25 mg PO DAILY 11/30/16 Sucralfate [Carafate Tab] 1 gm PO TID 11/30/16 clonazePAM [Klonopin] 0.25 mg PO BID 11/30/16 glyBURIDE [Micronase] 2.5 mg PO DAILY 11/30/16 - Allergies Allergies/Adverse Reactions: Allergies Allergy/AdvReac Type Severity Reaction Status Date / Time No Known Allergies Allergy Verified 07/18/14 13:37 Review of Systems ROS Statement: Except As Marked, All Systems Reviewed And Found Negative Constitutional: Positive for: Weakness Gastrointestinal: Positive for: Nausea Neurological: Positive for: Confusion, Dizziness Physical Exam - Reviewed Nursing Documentation Reviewed: Yes Vital Signs Reviewed: Yes - Physical Exam Appears: Positive for: Non-toxic (ill but nontoxic) Head Exam: Positive for: ATRAUMATIC, NORMAL INSPECTION, NORMOCEPHALIC Skin: Positive for: Dry (dehydrated appearing) Eye Exam: Positive for: Normal appearance ENT: Positive for: Other (dry mucus membranes; tongue glossitis) Neck: Positive for: Normal, Supple Cardiovascular/Chest: Positive for: Regular Rate, Rhythm Respiratory: Positive for: Normal Breath Sounds. Negative for: Respiratory Distress Pulses-Radial (L): 2+ Pulses-Radial (R): 2+ Gastrointestinal/Abdominal: Positive for: Normal Exam, Soft. 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 Right apical density is diminished compare to radiograph. CT Head Impression: Mass (or masses) left cerebellar hemisphere. Additional questionable abnormalities right posterior parietal. Accordingly MRI advised for further evaluation given the clinical setting with this clinical history. Time: 112 Case discussed with patient's PCP Annie Brito APN, who states MRI at [facility] from approximately 2 weeks ago did not reveal brain lesions, CT with questionable new findings. Troponin elevated but appears chronically so. Cardiology consulted last visit. Patient continued to deny chest pain or shortness of breath. Will let cardiology decide on appropriateness of Aspirin use due to mets to brain/ risk bleed and thrombocytopenia.. Platelets are stable from last visit, hemoglobin 11.6 which is likely hemoconcentrated given clinical degree of dehydration. Will place Obs-Tele for neurology/cardiology evaluations. Byron Brito will discuss with patient's team at [facility]. Pt admitted to tele Dr Peterson/ Asmita in ED. Care transferred. Dr Peterson/ Napoleon Brito to followup w neurology/cardio and need for MR imaging. Scribe Attestation: Documented by Cristine Noble acting as a scribe for Andrea Barnett DO. Provider Attestation: All medical record entries made by the Scribe were at my direction and personally dictated by me. I have reviewed the chart and agree that the record accurately reflects my personal performance of the history, physical exam, medical decision making, and the department course for this patient. I have also personally directed, reviewed, and agree with the discharge instructions and disposition. Disposition - Clinical Impression Clinical Impression: Dehydration, New onset seizure, Malignancy, Anemia, Thrombocytopenia - Patient ED Disposition Is Patient to be Admitted: Yes Counseled Patient/Family Regarding: Studies Performed, Diagnosis - Disposition Disposition Time: 11:20 Condition: GUARDED - Pt Status Changed To: Hospital Disposition Of: Observation - POA Present On Arrival: None, Falls Or Trauma
--- NOTE | 2016-11-30 11:00 | RAD ---
HISTORY: AMS COMPARISON: Frontal chest radiograph 10/18/2016. FINDINGS: LUNGS: Improved aeration is appreciate medial right apex in the interval with fullness remaining at the right suprahilar space. Remaining lung hernandez appear clear. PLEURA: No significant pleural effusion identified, no pneumothorax apparent. CARDIOVASCULAR: Normal. OSSEOUS STRUCTURES: No significant abnormalities. VISUALIZED UPPER ABDOMEN: Normal. OTHER FINDINGS: None. IMPRESSION: No interval cardiopulmonary disease is appreciated with diminishing right suprahilar density remaining. Right apical density is diminished compare to 10/18/2016 radiograph.
--- NOTE | 2016-11-30 11:15 | CT ---
PROCEDURE: CT HEAD WITHOUT CONTRAST. HISTORY: AMS, hx malignancy COMPARISON: 10/14/2016 CT thorax documenting right apical mass 6 x 7.5 x 9.5 cm extending into the mediastinum. TECHNIQUE: Axial computed tomography images were obtained through the head/brain without intravenous contrast. Coronal and sagittal reconstructed images. Radiation dose: Total exam DLP = 881.81 mGy-cm. This CT exam was performed using one or more of the following dose reduction techniques: Automated exposure control, adjustment of the mA and/or kV according to patient size, and/or use of iterative reconstruction technique. FINDINGS: HEMORRHAGE: No intracranial hemorrhage. BRAIN: Cystic mass left cerebellar hemisphere 6 x 10 mm, partially obscured, poorly visualized related to beam hardening artifact common to structures the posterior fossa a 2nd smaller more peripheral left cerebellar mass is also suspected. Questionable mass in the posterior right parieto-occipital regionThe finding is marked on the study for review. VENTRICLES: Unremarkable. No hydrocephalus. CALVARIUM: Unremarkable. PARANASAL SINUSES: Unremarkable as visualized. No significant inflammatory changes. MASTOID AIR CELLS: Unremarkable as visualized. No inflammatory changes. OTHER FINDINGS: None. IMPRESSION: Mass (or masses)) left cerebellar hemisphere. Additional questionable abnormalities right posterior parietal. Accordingly MRI advised for further evaluation given the clinical setting with this clinical history.
[2016-11-30] MEDS ORDERED: Ipratropium 0.02% Inhal Soln (0.5 mg/2.5 ml) UD IH PRN (12:11)
[2016-11-30] MEDS ORDERED: Albuterol 0.083% Inhal Sol (2.5 mg/3 mL) UD IH PRN (12:11)
[2016-11-30] MEDS ORDERED: Gadodiamide 287 MG/ML VIAL (15ML) IV ONE (12:21)
[2016-11-30] MEDS ORDERED: levETIRAcetam 500 MG in Sodium Chloride 0.9% 100 ML IVPB ONE (13:15)
--- NOTE | 2016-11-30 13:36 | MRI ---
PROCEDURE: MRI BRAIN WITHOUT CONTRAST HISTORY: new seizure, new brain mets, not seen on mri 11/15 COMPARISON: Head CT 11/30/2016. TECHNIQUE: Multiplanar, multisequence MR images of the brain were obtained without intravenous contrast enhancement. FINDINGS: HEMORRHAGE: None DWI: Multifocal acute lacunar infarctions are identified involving the bilateral cerebral hemispheres, mostly at the bilateral parietal lobes with the delete the frontal and temporal lobes least affected. The bilateral occipital lobes appear moderately affected. Chronic lacune is identified in the right cerebellum posteriorly. No definite lobar brain infarction identified this time. There is a clinical question of brain metastasis with the current pattern uncommon if not rare for brain metastasis. The lucency seen on the prior CT 11/30/2016 at the inferior left cerebellar hemisphere appears to correspond to restricted diffusion and somewhat diminished ADC signal and may represent an acute to subacute lacune. Unfortunately, due to marked patient motion and lack of cooperation of the patient, only diffusion-weighted sequence could be performed in the evaluation this patient. BRAIN PARENCHYMA: No additional sequences acquired besides diffusion-weighted imaging at this time. VENTRICLES: No apparent hydrocephalus. CRANIUM: Incomplete examination as per above. ORBITS: Incomplete evaluation as per above. PARANASAL SINUSES/MASTOIDS: Incomplete evaluation as per above. VASCULAR SYSTEM: Incomplete evaluation as per above. OTHER FINDINGS: None. IMPRESSION: Multifocal acute lacune infarcts are identified involving the bilateral cerebral and cerebellar hemispheres but sparing the brainstem. Unfortunate, the examination could not be continued beyond the diffusion-weighted sequences due to marked did lack of patient cooperativity. Brain metastasis are not completely excluded by this exam as a result. Repeat MRI examination is advised when feasible with and without contrast. Findings discussed with Dr. Brito with read back verification, 11/30/2016 13:21 p.m.
--- NOTE | 2016-11-30 15:39 | CP.PCM.HP ---
History of Present Illness - History of Present Illness History of Present Illness: pt admitted for new onset seizure. pts states that she fell 2 days ago hitting her head and shoulder. then was "fine"f or 2 days. last night slept well then woke up w/ ams, staring into spac eand not making sense. ct demonstrates cerebellar mass w/ mass effect and multilevel lacunar infarcts both acute na dchornic. at present pt is not making sense but is able ot make purposeful movements. all bw and imaging reviewed. case d/c w/ radiology, er and neuro-dr debra. Present on Admission - Present on Admission Any Indicators Present on Admission: Yes History of Uncontrolled Diabetes: Yes Review of Systems - Review of Systems Systems not reviewed;Unavailable: Altered Mental Status - Neurological Neurological: As Per HPI, Abnormal Gait, Abnormal Movements, Disequilibrium, Dizziness Past Patient History - Infectious Disease Hx of Infectious Diseases: None - Tetanus Immunizations Tetanus Immunization: Unknown - Past Medical History & Family History Past Medical History?: Yes - Past Social History Smoking Status: Heavy Smoker > 10 Cigarettes Daily - CARDIAC Hx Hypertension: Yes - PULMONARY Hx Respiratory Disorders: No - NEUROLOGICAL Hx Neurological Disorder: No - HEENT Hx HEENT Problems: No - RENAL Hx Chronic Kidney Disease: No - ENDOCRINE/METABOLIC Hx Endocrine Disorders: Yes Hx Diabetes Mellitus Type 2: Yes - HEMATOLOGICAL/ONCOLOGICAL Hx Anemia: Yes Hx Human Immunodeficiency Virus (HIV): No - INTEGUMENTARY Hx Dermatological Problems: No - MUSCULOSKELETAL/RHEUMATOLOGICAL Hx Musculoskeletal Disorders: No Hx Falls: Yes - GASTROINTESTINAL Hx Gastritis: Yes - GENITOURINARY/GYNECOLOGICAL Hx Genitourinary Disorders: No - PSYCHIATRIC Hx Anxiety: Yes Hx Depression: Yes - SURGICAL HISTORY Hx Section: Yes (x2) - ANESTHESIA Hx Anesthesia: Yes Hx Anesthesia Reactions: No Hx Malignant Hyperthermia: No Meds Allergies/Adverse Reactions: Allergies Allergy/AdvReac Type Severity Reaction Status Date / Time No Known Allergies Allergy Verified 07/18/14 13:37 Physical Exam - Constitutional Appears: Non-toxic, No Acute Distress, Confused, Chronically Ill - Head Exam Head Exam: ATRAUMATIC, NORMAL INSPECTION, NORMOCEPHALIC - Eye Exam Eye Exam: EOMI, Normal appearance, PERRL Pupil Exam: NORMAL ACCOMODATION, PERRL - ENT Exam ENT Exam: Mucous Membranes Moist, Normal Exam - Neck Exam Neck exam: Positive for: Normal Inspection - Respiratory Exam Respiratory Exam: Clear to Auscultation Bilateral, NORMAL BREATHING PATTERN - Cardiovascular Exam Cardiovascular Exam: REGULAR RHYTHM, RRR, +S1, +S2 - GI/Abdominal Exam GI & Abdominal Exam: Normal Bowel Sounds, Soft. absent: Tenderness - Extremities Exam Extremities exam: Positive for: full ROM, normal capillary refill, normal inspection, pedal pulses present - Back Exam Back exam: NORMAL INSPECTION - Neurological Exam Neurological exam: Alert, CN II-XII Intact, Normal Gait, Oriented x3, Reflexes Normal - Psychiatric Exam Psychiatric exam: Normal Affect, Normal Mood - Skin Skin Exam: Dry, Intact, Normal Color, Warm Results - Vital Signs Recent Vital Signs: Last Vital Signs Temp 98.7 F 11/30/16 12:30 Pulse 77 11/30/16 14:20 Resp 16 11/30/16 14:20 BP 120/68 11/30/16 14:20 Pulse Ox 96 11/30/16 14:20 - Labs Result Diagrams: 11/30/16 10:10 11/30/16 10:10 Assessment & Plan (1) Squamous cell carcinoma lung Status: Acute (2) Lacunar infarct, acute Status: Acute (3) Cirrhosis Status: Acute (4) DVT prophylaxis Status: Acute (5) Diabetes type 2, controlled Status: Acute - Assessment and Plan (Free Text) Assessment: A/P-acute/chronic lacunar infacts, 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 transfer center given all info approx 45 direct time w/ pt Decision To Admit - Pt Status Changed To: Hospital Disposition Of: Observation - . Bed Request Type: Intensive Care Admitting Physician: Jayna Peterson
[2016-11-30] MEDS ORDERED: Potassium Chloride 10 mEq ER Tab PO SCH (17:00)
--- NOTE | 2016-11-30 17:06 | CP.PCM.PCO ---
Assessment & Plan - Assessment and Plan (Free Text) Assessment: NEURO COMMUNICATION NOTE: 11/30/16 CASED DISCUSSED WITH MARCIN ASHER IN TERMS OF HISTORY AND PRESENTATION WELL SCAN. I REVIEWED THE MRI BRAIN WITHOUT CONTRAST WHICH SHOWED MULTIPLE BILATERAL CEREBRAL/CEREBELLAR INFARCTS WITH A ? RIGTH PERVENTRICULAR MET. THERE IS AN EMBOLIC PHENOMENON TO HER STROKES GIVING HER UNDERLYING MALIGNANCY, BUT GIVEN HER LOW PLATELET COUNT , USING ANTIPLATELETS AT THIS TIME FOR STROKE PREVENTION OR COUMADIN IS A RISK FOR BLEED. CONSIDER HER CARE AT A TERTIARY CENTER SINCE CAROLYN IS DOING HER MALIGNANCY OF THE LUNG MANAGEMENT. CONSIDER CILASTIZOL 50MG PO BID FOR STROKE PREVENTION AND KEPPRA 500MG IV Q12 FOR SEIZURE PROPHYLAXIS. WILL BENEFIT FOR A REPEAT MRI BRAIN WITH CONTRAST. THANKS. JHUI OBRIEN.
[2016-11-30 18:38] LABS: SQUAMOUS EPITHIAL 6 /hpf (0-5); URINE BILIRUBIN NEGATIVE (NEGATIVE); URINE BLOOD NEGATIVE (NEGATIVE); URINE CLARITY SLIGHTY-CLOUDY (Clear); URINE COLOR AMBER (YELLOW); URINE GLUCOSE (UA) NEG (Normal); URINE LEUKOCYTE ESTERASE NEG Leu/uL (Negative); URINE NITRATE NEGATIVE (NEGATIVE); URINE PROTEIN 100 mg/dL (NEGATIVE); URINE UROBILINOGEN 0.2-1.0 mg/dL (0.2-1.0)
[2016-11-30] MEDS ORDERED: Sodium Chloride 0.9% 1,000 ML IV SCH (19:45)
[2016-11-30] MEDS ORDERED: levETIRAcetam 500 MG in Sodium Chloride 0.9% 100 ML IVPB SCH (21:00)
[2016-11-30 21:13] LABS: BASO % 0.4 % (0.0-2.0); EOS % 0.2 % (0.0-4.0); HEMOGLOBIN 9.4 g/dL (12.0-16.0); LYMPH # 0.5 K/uL (1.0-4.3); MEAN CELL VOLUME 86.2 fl (81.0-99.0); MEAN CORPUSCULAR HEMOGLOBIN 28.1 pg (27.0-31.0); MEAN CORPUSCULAR HGB CONC 32.6 g/dL (33.0-37.0); MEAN PLATELET VOLUME 9.6 fl (7.2-11.7); MONO # 0.5 K/uL (0.0-0.8); MONO % 12.8 % (0.0-10.0); NEUT # 3.2 K/uL (1.8-7.0); NEUT % 74.6 % (50.0-75.0); NRBC % 0.2 % (0.0-0.0); RBC 3.33 Mil/uL (3.80-5.20); RED CELL DISTRIBUTION WIDTH 17.8 % (11.5-14.5); WHITE BLOOD COUNT 4.2 K/uL (4.8-10.8)
[2016-11-30] MEDS ORDERED: Dextrose 50% SYRINGE Inj (50 ml) IV PRN (22:51)
[2016-11-30] MEDS ORDERED: Glucagon Recombinant 1 mg Inj IM PRN ×2 (22:51)
[2016-11-30] MEDS ORDERED: Dextrose 50% SYRINGE Inj (50 ml) IVP PRN (22:51)
--- NOTE | 2016-12-01 00:42 | CP.CCUPN ---
CCU Subjective - Physician Review Events Since Last Encounter (Free Text): Chief complaint: Possible seizure and decreased responsiveness HPI: Pt is a 51yo female with a pmhx of cirrhosis, DM, lung mass, who is currently under workup for lung mass with recent admission to [facility]. Pt has had low platelets and on CT Scan has been found to have what appears to be possible infarcts secondary to malignancy and possible seizure. Patient present now after she was found to have periods of decreased mental status where she seemed to have a blank stare. Patient fell down two days ago where there was trauma to her head. Poor oral intake. PT is supposed to be transferred to [facility] where previous workup and treatment has been given. Neurology on board. PCP: Be Brito Last Vital Signs Temp 98.7 F 11/30/16 12:30 Pulse 89 11/30/16 18:09 Resp 16 11/30/16 18:09 BP 135/79 11/30/16 18:09 Pulse Ox 97 11/30/16 18:09 PMH: Anemia, Anxiety, Depression, Diabetes, Gastritis, HTN Surgical History: Endoscopy (WITH BANDING), Family History: Diabetes, Hypertension Home Medications: Ambulatory Orders Medication Instructions Recorded Furosemide [Lasix] 20 mg PO DAILY 07/18/14 Alogliptin Herber/Metformin HCl 1 tab PO BID 10/14/16 [Alogliptin-Metformin 12.5-1000] Potassium Chloride [Klor-Con M10] 10 meq PO Q48H 10/14/16 Albuterol 0.083% [Albuterol 0.083% 3 ml IH Q6H PRN 11/30/16 Inhal Addie (2.5 mg/3 ml) UD] Ipratropium 0.02% [Atrovent] 2.5 ml IH Q6H PRN 11/30/16 Nadolol [Corgard] 10 mg PO DAILY 11/30/16 Pantoprazole Sodium [Protonix] 40 mg PO DAILY 11/30/16 Spironolactone [Aldactone] 25 mg PO DAILY 11/30/16 Sucralfate [Carafate Tab] 1 gm PO TID 11/30/16 clonazePAM [Klonopin] 0.25 mg PO BID 11/30/16 glyBURIDE [Micronase] 2.5 mg PO DAILY 11/30/16 Allergies/Adverse Reactions: Allergies Allergy/AdvReac Type Severity Reaction Status Date / Time No Known Allergies Allergy Verified 07/18/14 13:37 14 ROS- confusion and lethargy - ECG ECG Rhythm: Positive for: Sinus Rhythm, Nonspecific Changes Interpretation Of ECG: QTC of 497ms Rate: 71 O2 Sat by Pulse Oximetry: 98 (RA) Pulse Ox Interpretation: Normal CT Head Impression: Mass (or masses) left cerebellar hemisphere. Additional questionable abnormalities right posterior parietal. Accordingly MRI advised for further evaluation given the clinical setting with this clinical history. CCU Objective - Vital Signs / Intake & Output Vital Signs (Last 4 hours): Vital Signs Temp Pulse Resp BP Pulse Ox 11/30/16 22:00 99.4 F 86 20 140/73 98 Intake and Output (Last 8hrs): Intake & Output 11/30/16 11/30/16 12/01/16 14:59 22:59 06:59 Intake Total 200 Balance 200 Intake: IV 100 Intake, Piggyback 100 - Physical Exam Head: Positive for: Atraumatic, Normocephalic Pupils: Positive for: PERRL, Sluggish Conjunctiva: Positive for: Normal Mouth: Positive for: Dry Neck: Positive for: Normal Range of Motion Respiratory/Chest: Positive for: Clear to Auscultation, Good Air Exchange Cardiovascular: Positive for: Regular Rate and Rhythm, Normal S1, S2 Abdomen: Negative for: Tenderness, Distention, Normal Bowel Sounds, Peritoneal Signs, Rebound, Guarding, McBurney's Point Tender, Rovsing's Sign Present, Hernias, Feeding Tubes, Ostomy Tubes, Mass/Organomegaly, Scars, Other Back: Negative for: Normal Inspection, CVA Tenderness, Midline Tenderness, Paraspinal Tenderness, Pain with Leg Raise, Decubitus Ulcer, Other Upper Extremity: Positive for: Normal Inspection, Cyanosis, Edema Lower Extremity: Positive for: Normal Inspection, Edema Neurological: Positive for: Other (pt seems confused) Skin: Positive for: Warm, Dry, Normal Color - Medications Active Medications: Active Medications Generic Name Dose Route Start Last Admin Trade Name Freq PRN Reason Stop Dose Admin Acetaminophen 650 mg 11/30/16 19:32 11/30/16 19:54 Tylenol 650 Mg Supp [place] 650 mg Q4 PRN Administration For fever >100.4 Albuterol Sulfate 2.5 mg 11/30/16 12:11 Albuterol 0.083% Inhal Addie (2.5 Mg/3 Ml) Ud IH RQ6 PRN Shortness of Breath Clonazepam 0.25 mg 11/30/16 17:00 11/30/16 19:29 Klonopin PO Not Given BID MELE Dextrose 0 ml 11/30/16 22:51 Dextrose 50% Inj IVP STAT PRN Hypoglycemia Protocol Protocol Dextrose 0 ml 11/30/16 22:51 Dextrose 50% Inj IV STAT PRN Hyglycemia Protocol Protocol Dextrose 0 gm 11/30/16 22:51 Glutose 15 PO ONCE PRN Hypoglycemia Protocol Protocol Glucagon 0 mg 11/30/16 22:51 Glucagen Diagnostic Kit IM STAT PRN Hypoglycemia Protocol Protocol Glucagon 0 mg 11/30/16 22:51 Glucagen Diagnostic Kit IM STAT PRN Hypoglycemia Protocol Protocol Glyburide 2.5 mg 12/01/16 09:00 Micronase PO DAILY [facility] Home Med 1 tab 11/30/16 17:00 Alogliptin Herber/Metformin Hcl [Alogliptin-Metformin 12.5-1000] PO BID MELE Levetiracetam 500 mg/ Sodium 105 mls @ 210 mls/hr 11/30/16 21:00 Chloride IVPB Q12 MELE Sodium Chloride 1,000 mls @ 100 mls/hr 11/30/16 19:45 11/30/16 20:03 Sodium Chloride 0.9% IV 12/01/16 19:32 100 mls/hr .Q10H MELE Administration Insulin Human Regular 0 units 12/01/16 07:30 Humulin R SC ACHS [facility] Protocol Ipratropium [place] 0.5 mg 11/30/16 12:11 Atrovent IH RQ6 PRN Shortness of Breath Nadolol 10 mg 12/01/16 09:00 Corgard PO DAILY [facility] Pantoprazole Sodium 40 mg 12/01/16 09:00 Protonix Ec Tab PO DAILY [facility] Potassium Chloride 10 meq 11/30/16 17:00 11/30/16 19:29 Klor-Con 10 PO Not Given Q48H [facility] Spironolactone 25 mg 12/01/16 09:00 Aldactone PO DAILY [facility] Sucralfate 1 gm 11/30/16 13:00 11/30/16 19:29 Carafate Tab PO Not Given TID MELE - Patient Studies Lab Studies: Lab Studies 11/30/16 11/30/16 11/30/16 Range/Units 22:05 20:05 20:03 WBC Cancelled (4.8-10.8) K/uL RBC Cancelled (3.80-5.20) Mil/uL Hgb Cancelled (12.0-16.0) g/dL Hct Cancelled (34.0-47.0) % MCV Cancelled (81.0-99.0) fl MCH Cancelled (27.0-31.0) pg MCHC Cancelled (33.0-37.0) g/dL RDW Cancelled (11.5-14.5) % Plt Count Cancelled (130-400) K/uL MPV Cancelled (7.2-11.7) fl Gran % Cancelled Neut % (Auto) (50.0-75.0) % Lymph % (Auto) Cancelled (20.0-40.0) % [place] % (Auto) Cancelled (0.0-10.0) % Eos % (Auto) Cancelled (0.0-4.0) % Baso % (Auto) Cancelled (0.0-2.0) % Gran # Cancelled Neut # (1.8-7.0) K/uL Lymph # Cancelled (1.0-4.3) K/uL [place] # Cancelled (0.0-0.8) K/uL Eos # Cancelled (0.0-0.7) K/uL Baso # Cancelled (0.0-0.2) K/uL POC Glucose (mg/dL) 138 H (65-110) mg/dL Lactic Acid 2.7 H (0.7-2.1) MMOL/L Troponin I (0.00-0.120) ng/mL Urine Color (YELLOW) Urine Clarity (Clear) Urine pH (5.0-8.0) Ur Specific [place] (1.003-1.030) Urine Protein (NEGATIVE) mg/dL Urine Glucose (UA) (Normal) mg/dL Urine Ketones (NEGATIVE) mg/dL Urine Blood (NEGATIVE) Urine Nitrate (NEGATIVE) Urine Bilirubin (NEGATIVE) Urine Urobilinogen (0.2-1.0) mg/dL Ur Leukocyte Esterase (Negative) Amanda/uL Ur Squamous Epith Cells (0-5) /hpf Hyaline Casts (0-2) /hpf 11/30/16 11/30/16 11/30/16 Range/Units 20:03 20:00 18:09 WBC 4.2 L (4.8-10.8) K/uL RBC 3.33 L (3.80-5.20) Mil/uL Hgb 9.4 L D (12.0-16.0) g/dL Hct 28.7 L (34.0-47.0) % MCV 86.2 (81.0-99.0) fl MCH 28.1 (27.0-31.0) pg MCHC 32.6 L (33.0-37.0) g/dL RDW 17.8 H (11.5-14.5) % Plt Count 54 L (130-400) K/uL MPV 9.6 (7.2-11.7) fl Gran % Neut % (Auto) 74.6 (50.0-75.0) % Lymph % (Auto) 12.0 L (20.0-40.0) % [place] % (Auto) 12.8 H (0.0-10.0) % Eos % (Auto) 0.2 (0.0-4.0) % Baso % (Auto) 0.4 (0.0-2.0) % Gran # Neut # 3.2 (1.8-7.0) K/uL Lymph # 0.5 L (1.0-4.3) K/uL [place] # 0.5 (0.0-0.8) K/uL Eos # 0.0 (0.0-0.7) K/uL Baso # 0.0 (0.0-0.2) K/uL POC Glucose (mg/dL) (65-110) mg/dL Lactic Acid (0.7-2.1) MMOL/L Troponin I 0.6740 H* (0.00-0.120) ng/mL Urine Color [place] (YELLOW) Urine Clarity Slighty-cloudy (Clear) Urine pH 5.0 (5.0-8.0) Ur Specific [place] 1.028 (1.003-1.030) Urine Protein 100 (NEGATIVE) mg/dL Urine Glucose (UA) Neg (Normal) mg/dL Urine Ketones Negative (NEGATIVE) mg/dL Urine Blood Negative (NEGATIVE) Urine Nitrate Negative (NEGATIVE) Urine Bilirubin Negative (NEGATIVE) Urine Urobilinogen 0.2-1.0 (0.2-1.0) mg/dL Ur Leukocyte Esterase Neg (Negative) Amanda/uL Ur Squamous Epith Cells 6 H (0-5) /hpf Hyaline Casts 6-10 H (0-2) /hpf Laboratory Results - last 24 hr 11/30/16 11/30/16 11/30/16 18:09 20:00 20:03 WBC 4.2 L RBC 3.33 L Hgb 9.4 L D Hct 28.7 L MCV 86.2 MCH 28.1 MCHC 32.6 L RDW 17.8 H Plt Count 54 L MPV 9.6 Gran % Neut % (Auto) 74.6 Lymph % (Auto) 12.0 L [place] % (Auto) 12.8 H Eos % (Auto) 0.2 Baso % (Auto) 0.4 Gran # Neut # 3.2 Lymph # 0.5 L [place] # 0.5 Eos # 0.0 Baso # 0.0 POC Glucose (mg/dL) Lactic Acid Troponin I 0.6740 H* Urine Color [place] Urine Clarity Slighty-cloudy Urine pH 5.0 Ur Specific [place] 1.028 Urine Protein 100 Urine Glucose (UA) Neg Urine Ketones Negative Urine Blood Negative Urine Nitrate Negative Urine Bilirubin Negative Urine Urobilinogen 0.2-1.0 Ur Leukocyte Esterase Neg Ur Squamous Epith Cells 6 H Hyaline Casts 6-10 H 11/30/16 11/30/16 11/30/16 20:03 20:05 22:05 WBC Cancelled RBC Cancelled Hgb Cancelled Hct Cancelled MCV Cancelled MCH Cancelled MCHC Cancelled RDW Cancelled Plt Count Cancelled MPV Cancelled Gran % Cancelled Neut % (Auto) Lymph % (Auto) Cancelled [place] % (Auto) Cancelled Eos % (Auto) Cancelled Baso % (Auto) Cancelled Gran # Cancelled Neut # Lymph # Cancelled [place] # Cancelled Eos # Cancelled Baso # Cancelled POC Glucose (mg/dL) 138 H Lactic Acid 2.7 H Troponin I Urine Color Urine Clarity Urine pH Ur Specific [place] Urine Protein Urine Glucose (UA) Urine Ketones Urine Blood Urine Nitrate Urine Bilirubin Urine Urobilinogen Ur Leukocyte Esterase Ur Squamous Epith Cells Hyaline Casts Fingerstick Blood Sugar Results: 138 Review of Systems - EENT Eyes: UNREMARKABLE Ears: UNREMARKABLE Nose/Mouth/Throat: UNREMARKABLE - Breasts Breasts: UNREMARKABLE - Cardiovascular Cardiovascular: UNREMARKABLE - Respiratory Respiratory: UNREMARKABLE - Gastrointestinal Gastrointestinal: UNREMARKABLE - Musculoskeletal Musculoskeletal: UNREMARKABLE - Integumentary Integumentary: UNREMARKABLE - Neurological Neurological: Confusion, Memory Loss - Endocrine Endocrine: UNREMARKABLE Critical Care Progress Note - Ventilator Checklist Head of Bed 30 Degrees: No Daily Sedation Vacation: No Daily Assessment of Readiness to Wean: No Daily Spontaneous Breathing Trial: No PUD Prophalyxis: No DVT Prophylaxis: No - Nutrition Nutrition: Nutrition Category Date Time Status NPO Diet [DIET] Diets 11/30/16 Dinner Active Assessment/Plan - Assessment and Plan (Free Text) Assessment: Pt is a 51 yo female with pmhx of a new onset Seizure and CT findings conducive with possible CVA who is being transferred to [facility] for further workup and treatment as was discussed between Neurology and Byron Brito. Plan: Admit to ICU 1) possible New onset Seizure versus - pt was started on keppra IV - currently Npo awaiting swallow eval, pt acting confused, possible post ictal - neurology on board - possible MRI depending if pt gets transferred, although unlikely as previous studies are present in [facility] - possible no infiltrates on previous MRI - neurology recommending cilastazol and keppra 2) dehydration- will start gentle hydration 3) thrombocytopenia- will hold anti coagulation - scd 4) AMS 5) elevated troponins appears to be chronic- will monitor and discuss with cardio about anticoagulation 6) Diet npo 7) GI and DVT prophylaxis - Date & Time Date: 12/01/16 Time: 00:54
[2016-12-01] MEDS ORDERED: Sodium Chloride 0.9% 1,000 ML IV SCH (01:00)
[2016-12-01 05:15] LABS: BASO % 0.3 % (0.0-2.0); EOS % 0.2 % (0.0-4.0); LYMPH # 0.5 K/uL (1.0-4.3); LYMPH % 12.5 % (20.0-40.0); MEAN CELL VOLUME 86.2 fl (81.0-99.0); MEAN CORPUSCULAR HEMOGLOBIN 27.8 pg (27.0-31.0); MEAN CORPUSCULAR HGB CONC 32.2 g/dL (33.0-37.0); MEAN PLATELET VOLUME 8.9 fl (7.2-11.7); MONO # 0.6 K/uL (0.0-0.8); NEUT # 2.8 K/uL (1.8-7.0); RBC 3.24 Mil/uL (3.80-5.20); RED CELL DISTRIBUTION WIDTH 17.6 % (11.5-14.5)
[2016-12-01 05:27] LABS: BLOOD UREA NITROGEN 11 mg/dl (7-17); CALCIUM 8.6 mg/dL (8.4-10.2); GFR AFRICAN-AMERICAN > 60; GFR NON-AFRICAN AMERICAN > 60
--- NOTE | 2016-12-01 07:56 | CARD ---
APPROVED REPORT EKG Measurement Heart [id number] <Conclusion> Normal sinus rhythm Possible Left atrial enlargement T wave abnormality in I and AVL Prolonged QT Abnormal ECG
--- NOTE | 2016-12-01 08:03 | CP.PCM.PN ---
Subjective - Date & Time of Evaluation Date of Evaluation: 12/01/16 Time of Evaluation: 07:55 - Subjective Subjective: pt remains ams. vss. no f/c, n/v/d. remains pending bed at the [facility]. am labs noted. still w/ elevated trop. Objective - Vital Signs/Intake and Output Vital Signs (last 24 hours): Temp Pulse Resp BP Pulse Ox 97.0 F L 85 14 140/57 L 97 12/01/16 07:35 12/01/16 07:35 12/01/16 07:35 12/01/16 07:35 12/01/16 07:35 Intake and Output: 12/01/16 12/01/16 06:59 18:59 Intake Total 900 Balance 900 - Medications Medications: Current Medications Acetaminophen (Tylenol 650 Mg Supp) 650 mg [place] Q4 PRN PRN Reason: For fever >100.4 Last Admin: 11/30/16 19:54 Dose: 650 mg Albuterol Sulfate (Albuterol 0.083% Inhal Addie (2.5 Mg/3 Ml) Ud) 2.5 mg IH RQ6 PRN PRN Reason: Shortness of Breath Cilostazol (Pletal) 50 mg PO DAILY MELE Clonazepam (Klonopin) 0.25 mg PO BID MELE Last Admin: 11/30/16 19:29 Dose: Not Given Dextrose (Dextrose 50% Inj) 0 ml IVP STAT PRN; Protocol PRN Reason: Hypoglycemia Protocol Dextrose (Dextrose 50% Inj) 0 ml IV STAT PRN; Protocol PRN Reason: Hyglycemia Protocol Dextrose (Glutose 15) 0 gm PO ONCE PRN; Protocol PRN Reason: Hypoglycemia Protocol Glucagon (Glucagen Diagnostic Kit) 0 mg IM STAT PRN; Protocol PRN Reason: Hypoglycemia Protocol Glucagon (Glucagen Diagnostic Kit) 0 mg IM STAT PRN; Protocol PRN Reason: Hypoglycemia Protocol Glyburide (Micronase) 2.5 mg PO DAILY MELE Home Med (Alogliptin Herber/Metformin Hcl [Alogliptin-Metformin 12.5-1000]) 1 tab PO BID MELE Levetiracetam 500 mg/ Sodium (Chloride) 105 mls @ 210 mls/hr IVPB Q12 MELE Sodium Chloride (Sodium Chloride 0.9%) 1,000 mls @ 100 mls/hr IV .Q10H MELE Stop: 12/01/16 19:32 Last Admin: 11/30/16 20:03 Dose: 100 mls/hr Sodium Chloride (Sodium Chloride 0.9%) 1,000 mls @ 75 mls/hr IV .[id number] [facility] Stop: 12/02/16 00:58 Insulin Human Regular (Humulin R) 0 units SC ACHS MELE PRN Reason: Protocol Ipratropium [place] (Atrovent) 0.5 mg IH RQ6 PRN PRN Reason: Shortness of Breath Nadolol (Corgard) 10 mg PO DAILY [facility] Pantoprazole Sodium (Protonix Ec Tab) 40 mg PO DAILY [facility] Potassium Chloride (Klor-Con 10) 10 meq PO Q48H [facility] Last Admin: 11/30/16 19:29 Dose: Not Given Spironolactone (Aldactone) 25 mg PO DAILY [facility] Sucralfate (Carafate Tab) 1 gm PO TID [facility] Last Admin: 11/30/16 19:29 Dose: Not Given - Labs Labs: 12/01/16 04:35 12/01/16 04:35 PT 17.1 Seconds (9.8-13.1) H 11/30/16 10:10 INR 1.6 (0.9-1.2) H 11/30/16 10:10 APTT 34.0 Seconds (25.6-37.1) 11/30/16 10:10 - Constitutional Appears: Non-toxic, No Acute Distress, Chronically Ill - Head Exam Head Exam: ATRAUMATIC, NORMAL INSPECTION, NORMOCEPHALIC - Eye Exam Eye Exam: EOMI, Normal appearance, PERRL Pupil Exam: NORMAL ACCOMODATION, PERRL - ENT Exam ENT Exam: Mucous Membranes Moist, Normal Exam - Neck Exam Neck Exam: Full ROM, Normal Inspection. absent: Lymphadenopathy - Respiratory Exam Respiratory Exam: Clear to Ausculation Bilateral, NORMAL BREATHING PATTERN - Cardiovascular Exam Cardiovascular Exam: REGULAR RHYTHM, RRR, +S1, +S2. absent: Murmur - GI/Abdominal Exam GI & Abdominal Exam: Soft, Normal Bowel Sounds. absent: Tenderness - Extremities Exam Extremities Exam: Full ROM, Normal Capillary Refill, Normal Inspection. absent : Joint Swelling, Pedal Edema - Back Exam Back Exam: NORMAL INSPECTION - Neurological Exam Neurological Exam: Abnormal Gait, Altered, Awake, CN II-XII Intact, Oriented x3 - Psychiatric Exam Psychiatric exam: Normal Affect, Normal Mood - Skin Skin Exam: Dry, Intact, Normal Color, Warm Assessment and Plan (1) Squamous cell carcinoma lung Assessment & Plan: for xfer to the [facility] for heme/onc care/neuro onc care Status: Acute (2) Lacunar infarct, acute Assessment & Plan: neuro icu care ?? [facility] neuro surg consult at [facility] difficulty w/ starting anticoag/antiplt as pt has chronic low plt and bleeding from cirrhosis Status: Acute (3) Cirrhosis Assessment & Plan: follow closely Status: Acute (4) DVT prophylaxis Assessment & Plan: scd and aehose Status: Acute (5) Diabetes type 2, controlled Assessment & Plan: fsbg riss home meds Status: Acute - Assessment and Plan (Free Text) Assessment: dehydration-ivf
[2016-12-01 08:54] LABS: SQUAMOUS EPITHIAL 11 /hpf (0-5); URINE BILIRUBIN NEGATIVE (NEGATIVE); URINE BLOOD SMALL (NEGATIVE); URINE CLARITY SLIGHTY-CLOUDY (Clear); URINE COLOR YELLOW (YELLOW); URINE GLUCOSE (UA) NEG (Normal); URINE HYALINE CAST 0-2 /hpf (0-2); URINE LEUKOCYTE ESTERASE NEG Leu/uL (Negative); URINE NITRATE NEGATIVE (NEGATIVE); URINE PROTEIN 30 mg/dL (NEGATIVE); URINE UROBILINOGEN 0.2-1.0 mg/dL (0.2-1.0)
[2016-12-01] MEDS ORDERED: Cilostazol 50 mg Tab UD PO SCH (09:00)
[2016-12-01] MEDS ORDERED: Pantoprazole 40 mg EC Tab PO SCH (09:00)
[2016-12-01] MEDS: Insulin Regular 100 units/ml SC SCH ×3 (09:30→16:00)
--- NOTE | 2016-12-01 11:07 | CP.PCM.CON ---
Past Patient History - Infectious Disease Hx of Infectious Diseases: None - Tetanus Immunizations Tetanus Immunization: Unknown - Past Medical History & Family History Past Medical History?: Yes - Past Social History Smoking Status: Light Smoker < 10 Cigarettes Daily - CARDIAC Hx Hypertension: Yes - PULMONARY Hx Respiratory Disorders: Yes Hx Lung Cancer: Yes - NEUROLOGICAL Hx Neurological Disorder: No - HEENT Hx HEENT Problems: No - RENAL Hx Chronic Kidney Disease: No - ENDOCRINE/METABOLIC Hx Endocrine Disorders: Yes Hx Diabetes Mellitus Type 2: Yes - HEMATOLOGICAL/ONCOLOGICAL Hx Blood Disorders: Yes Hx Anemia: Yes Hx Blood Transfusions: Yes Hx Blood Transfusion Reaction: No Hx Cirrhosis: Yes Hx Human Immunodeficiency Virus (HIV): No - INTEGUMENTARY Hx Dermatological Problems: No - MUSCULOSKELETAL/RHEUMATOLOGICAL Hx Musculoskeletal Disorders: No Hx Falls: Yes - GASTROINTESTINAL Hx Gastrointestinal Disorders: Yes Hx Gastritis: Yes - GENITOURINARY/GYNECOLOGICAL Hx Genitourinary Disorders: No - PSYCHIATRIC Hx Psychophysiologic Disorder: Yes Hx Anxiety: Yes Hx Depression: Yes Hx Substance Use: No - SURGICAL HISTORY Hx Surgeries: Yes Hx Section: Yes (x2) Other/Comment: Endoscopy. - ANESTHESIA Hx Anesthesia: Yes Hx Anesthesia Reactions: No Hx Malignant Hyperthermia: No Has any member of the family had a problem w/ anesthesia?: No Meds Allergies/Adverse Reactions: Allergies Allergy/AdvReac Type Severity Reaction Status Date / Time No Known Allergies Allergy Verified 07/18/14 13:37 - Medications Medications: Current Medications Acetaminophen (Tylenol 650 Mg Supp) 650 mg [place] Q4 PRN PRN Reason: For fever >100.4 Last Admin: 11/30/16 19:54 Dose: 650 mg Albuterol Sulfate (Albuterol 0.083% Inhal Addie (2.5 Mg/3 Ml) Ud) 2.5 mg IH RQ6 PRN PRN Reason: Shortness of Breath Cilostazol (Pletal) 50 mg PO DAILY MELE Clonazepam (Klonopin) 0.25 mg PO BID MELE Last Admin: 12/01/16 11:03 Dose: 0.25 mg Dextrose (Dextrose 50% Inj) 0 ml IVP STAT PRN; Protocol PRN Reason: Hypoglycemia Protocol Dextrose (Dextrose 50% Inj) 0 ml IV STAT PRN; Protocol PRN Reason: Hyglycemia Protocol Dextrose (Glutose 15) 0 gm PO ONCE PRN; Protocol PRN Reason: Hypoglycemia Protocol Glucagon (Glucagen Diagnostic Kit) 0 mg IM STAT PRN; Protocol PRN Reason: Hypoglycemia Protocol Glucagon (Glucagen Diagnostic Kit) 0 mg IM STAT PRN; Protocol PRN Reason: Hypoglycemia Protocol Glyburide (Micronase) 2.5 mg PO DAILY [facility] Last Admin: 12/01/16 10:54 Dose: 2.5 mg Home Med (Alogliptin Herber/Metformin Hcl [Alogliptin-Metformin 12.5-1000]) 1 tab PO BID [facility] Levetiracetam 500 mg/ Sodium (Chloride) 105 mls @ 210 mls/hr IVPB Q12 MELE Last Admin: 12/01/16 09:31 Dose: 210 mls/hr Sodium Chloride (Sodium Chloride 0.9%) 1,000 mls @ 100 mls/hr IV .Q10H MELE Stop: 12/01/16 19:32 Last Admin: 11/30/16 20:03 Dose: 100 mls/hr Sodium Chloride (Sodium Chloride 0.9%) 1,000 mls @ 75 mls/hr IV .[id number] [facility] Stop: 12/02/16 00:58 Insulin Human Regular (Humulin R) 0 units SC ACHS MELE PRN Reason: Protocol Last Admin: 12/01/16 09:30 Dose: Not Given Ipratropium [place] (Atrovent) 0.5 mg IH RQ6 PRN PRN Reason: Shortness of Breath Nadolol (Corgard) 10 mg PO DAILY [facility] Pantoprazole Sodium (Protonix Ec Tab) 40 mg PO DAILY [facility] Last Admin: 12/01/16 10:56 Dose: 40 mg Potassium Chloride (Klor-Con 10) 10 meq PO Q48H [facility] Last Admin: 11/30/16 19:29 Dose: Not Given Spironolactone (Aldactone) 25 mg PO DAILY [facility] Sucralfate (Carafate Tab) 1 gm PO TID [facility] Last Admin: 12/01/16 11:03 Dose: 1 gm Results - Vital Signs Recent Vital Signs: Last Vital Signs Temp 97.0 F L 12/01/16 07:35 Pulse 85 12/01/16 07:35 Resp 14 12/01/16 07:35 BP 140/57 L 12/01/16 07:35 Pulse Ox 97 12/01/16 07:35 - Labs Result Diagrams: 12/01/16 04:35 12/01/16 04:35 Labs: Laboratory Results - last 24 hr 11/30/16 11/30/16 11/30/16 18:05 18:09 20:00 WBC 4.2 L RBC 3.33 L Hgb 9.4 L D Hct 28.7 L MCV 86.2 MCH 28.1 MCHC 32.6 L RDW 17.8 H Plt Count 54 L MPV 9.6 Gran % Neut % (Auto) 74.6 Lymph % (Auto) 12.0 L [place] % (Auto) 12.8 H Eos % (Auto) 0.2 Baso % (Auto) 0.4 Gran # Neut # 3.2 Lymph # 0.5 L [place] # 0.5 Eos # 0.0 Baso # 0.0 Sodium Potassium Chloride Carbon Dioxide Anion Gap BUN Creatinine Est GFR ( Amer) Est GFR (Non-Af Amer) POC Glucose (mg/dL) 214 H Random Glucose Lactic Acid Calcium Troponin I TSH 3rd Generation Urine Color [place] Urine Clarity Slighty-cloudy Urine pH 5.0 Ur Specific [place] 1.028 Urine Protein 100 Urine Glucose (UA) Neg Urine Ketones Negative Urine Blood Negative Urine Nitrate Negative Urine Bilirubin Negative Urine Urobilinogen 0.2-1.0 Ur Leukocyte Esterase Neg Urine RBC (Auto) Ur Squamous Epith Cells 6 H Hyaline Casts 6-10 H 11/30/16 11/30/16 11/30/16 20:03 20:03 20:05 WBC Cancelled RBC Cancelled Hgb Cancelled Hct Cancelled MCV Cancelled MCH Cancelled MCHC Cancelled RDW Cancelled Plt Count Cancelled MPV Cancelled Gran % Cancelled Neut % (Auto) Lymph % (Auto) Cancelled [place] % (Auto) Cancelled Eos % (Auto) Cancelled Baso % (Auto) Cancelled Gran # Cancelled Neut # Lymph # Cancelled [place] # Cancelled Eos # Cancelled Baso # Cancelled Sodium Potassium Chloride Carbon Dioxide Anion Gap BUN Creatinine Est GFR ( Amer) Est GFR (Non-Af Amer) POC Glucose (mg/dL) Random Glucose Lactic Acid 2.7 H Calcium Troponin I 0.6740 H* TSH 3rd Generation Urine Color Urine Clarity Urine pH Ur Specific [place] Urine Protein Urine Glucose (UA) Urine Ketones Urine Blood Urine Nitrate Urine Bilirubin Urine Urobilinogen Ur Leukocyte Esterase Urine RBC (Auto) Ur Squamous Epith Cells Hyaline Casts 11/30/16 12/01/16 12/01/16 22:05 04:35 04:35 WBC 4.0 L RBC 3.24 L Hgb 9.0 L Hct 28.0 L MCV 86.2 MCH 27.8 MCHC 32.2 L RDW 17.6 H Plt Count 38 L MPV 8.9 Gran % Neut % (Auto) 71.0 Lymph % (Auto) 12.5 L [place] % (Auto) 16.0 H Eos % (Auto) 0.2 Baso % (Auto) 0.3 Gran # Neut # 2.8 Lymph # 0.5 L [place] # 0.6 Eos # 0.0 Baso # 0.0 Sodium 138 Potassium 3.6 Chloride 104 Carbon Dioxide 24 Anion Gap 14 BUN 11 Creatinine 0.6 L Est GFR ( Amer) > 60 Est GFR (Non-Af Amer) > 60 POC Glucose (mg/dL) 138 H Random Glucose 148 H Lactic Acid Calcium 8.6 Troponin I 0.6940 H* TSH 3rd Generation 0.36 L Urine Color Urine Clarity Urine pH Ur Specific [place] Urine Protein Urine Glucose (UA) Urine Ketones Urine Blood Urine Nitrate Urine Bilirubin Urine Urobilinogen Ur Leukocyte Esterase Urine RBC (Auto) Ur Squamous Epith Cells Hyaline Casts 12/01/16 12/01/16 06:16 08:20 WBC RBC Hgb Hct MCV MCH MCHC RDW Plt Count MPV Gran % Neut % (Auto) Lymph % (Auto) [place] % (Auto) Eos % (Auto) Baso % (Auto) Gran # Neut # Lymph # [place] # Eos # Baso # Sodium Potassium Chloride Carbon Dioxide Anion Gap BUN Creatinine Est GFR ( Amer) Est GFR (Non-Af Amer) POC Glucose (mg/dL) 153 H Random Glucose Lactic Acid Calcium Troponin I TSH 3rd Generation Urine Color Yellow Urine Clarity Slighty-cloudy Urine pH 6.0 Ur Specific [place] 1.024 Urine Protein 30 Urine Glucose (UA) Neg Urine Ketones Negative Urine Blood Small Urine Nitrate Negative Urine Bilirubin Negative Urine Urobilinogen 0.2-1.0 Ur Leukocyte Esterase Neg Urine RBC (Auto) 13 H Ur Squamous Epith Cells 11 H Hyaline Casts 0-2
[2016-12-01] MEDS ORDERED: Oxycodone/Acetaminophen 5/325 mg Tab PO PRN (11:14)
--- NOTE | 2016-12-01 15:14 | CON ---
CHIEF COMPLAINT: Questionable seizure. HISTORY OF PRESENT ILLNESS: This is a 51-year-old woman, who is a light smoker, smokes less than 10 cigarettes per day, type 2 diabetes mellitus, hypertension, history of cirrhosis, history of thrombocytopenia, history of lung mass with squamous cell carcinoma of the lung, who has been seen for all of her medical problems at [facility], was found to have decreased mental status and was evaluated for possible seizure. She underwent an MRI of the brain without contrast, which showed multiple focal acute lacunar infarcts involving bilateral cerebral and cerebellar hemispheres and spares the brainstem. There is a questionable right periventricular lesion, which could be a metastasis versus an infarction. MRI of the brain was not done with contrast. Echocardiogram is currently being done. The patient is supposed to be transferred to [facility] given her all previous workup is there, and she has been seen by all the consultants at that time. Currently, she has no further seizures. She is stable on Keppra. She is moving all extremities. No pronator drift seen. She is following simple commands. She seems very depressed. I recommend that she will be on Pletal given that she has low platelets for stroke prevention, and she is on Keppra 500 mg p.o. b.i.d. Recommend cardiology for positive troponin as well as history of possible embolic phenomenon for the infarcts given her malignancy she is hypocoagulopathic. PAST MEDICAL HISTORY: Anemia, anxiety, depression, diabetes, gastric cancer, hypertension, squamous cell carcinoma of the lung. PAST SURGICAL HISTORY: Endoscopy with banding, . FAMILY HISTORY: Noncontributory. REVIEW OF SYSTEMS: A 14-point review of system is negative except per the HPI. MEDICATIONS: Reviewed by nurse reconciliation sheet. SOCIAL HISTORY: She is light smoker, smokes less than 10 cigarettes per day. No illicit drug use or ETOH abuse. ALLERGIES: NO KNOWN DRUG ALLERGIES. PHYSICAL EXAMINATION: VITAL SIGNS: Temperature 97.4, pulse rate of 80, blood pressure 140/60, respiratory rate of 20, and oxygen saturation 98% by room air. GENERAL: The patient sitting up in bed, in no acute distress. HEENT: Head is atraumatic, normocephalic. PERRLA. Extraocular muscles intact. NECK: Supple. No JVD. No adenopathy noted. LUNGS: Clear to auscultation. No adventitious sounds. HEART: S1 and S2, normal rate and rhythm. No murmur, rubs, or gallops. ABDOMEN: Soft, nontender, nondistended. Bowel sounds present. EXTREMITIES: No clubbing. No cyanosis. Peripheral pulses 2+ felt bilaterally. NEUROLOGIC: The patient is alert and oriented to person, place, month, and year. Speech is fluent without any errors. Cranial nerves II through XII are intact. Motor exam: Moves all extremities equally, has giveaway weakness, but no focal weakness. She has reduced finger tap on bilateral upper extremities. Toes are upgoing bilaterally. Sensory exam: Light touch and pinprick, decreased at the calves and slightly decreased at the vibration of the toes. DTRs are 2+ throughout and 1 at the ankles. Coordination [id number] intact. Gait is deferred for now. LABORATORY DATA: Hemoglobin is 9, hematocrit 28, platelet count of 38. Sodium is 138, potassium is 3.6, chloride is 104, carbon dioxide of 24, BUN of 11, creatinine of 0.6, random glucose of 148. ASSESSMENT AND PLAN: This is a 51-year-old woman with a past medical history of type 2 diabetes mellitus, hypertension, history of squamous cell carcinoma of the lung, being treated by [facility], came in for altered mental status. She was found to have questionable new-onset seizure, found to have on the MRI of the brain without contrast multiple acute lacunar infarctions in bilateral cerebral hemisphere and bilateral parietal lobes and frontotemporal lobes as well as the bilateral cerebellar areas. There is a questionable pattern of brain metastasis on the right periventricular area, but MRI of the brain was not done with contrast therefore it is difficult to decipher. Currently, the patient is stable, no further seizures. Given her low platelet count, she cannot be on aspirin or Plavix, which further lower the platelets and cannot be on Coumadin because the platelet count is also low. RECOMMENDATIONS: At this time; 1. Keppra 500 mg p.o. b.i.d. for seizure prophylaxis. 2. We will give Pletal, which is cilostazol 50 mg p.o. b.i.d. for stroke prevention since it is a vasodilator and does not lower platelet count. 3. Monitor her electrolytes and correct accordingly. 4. Followup with hematology in regards to her thrombocytopenia, likely will benefit from transfer to [facility] given that hematology/oncology followup is over there and if so neuro oncology on board. At this time, she is clinically stable. Thank you for this consult. Require an echocardiogram. We will repeat MRI of the brain with contrast. Jose Alberto Juarez MD
[2016-12-01] MEDS ORDERED: Dextrose 50% SYRINGE Inj (50 ml) IVP ONE (16:03)
[2016-12-01] MEDS ORDERED: Dextrose 50% SYRINGE Inj (50 ml) ONE (16:03)
[2016-12-01 16:15] VITALS: TEMP 98.7
[2016-12-01] MEDS ORDERED: Dextrose 5%/0.45% NS 1,000 ML IV SCH (16:15)
[2016-12-01 18:07] VITALS: BP 108/70; PULSE 75; RESP 12; O2SAT 100
--- NOTE | 2016-12-02 09:45 | CP.PCM.DIS ---
Provider - Provider Date of Admission: 11/30/16 11:29 Attending physician: Jayna Peterson MD Time Spent in preparation of Discharge (in minutes): 15 Diagnosis - Discharge Diagnosis (1) Squamous cell carcinoma lung Status: Acute (2) Lacunar infarct, acute Status: Acute (3) Cirrhosis Status: Acute (4) DVT prophylaxis Status: Acute (5) Diabetes type 2, controlled Status: Acute Hospital Course - Lab Results Lab Results: Micro Results 11/30/16 20:03 Blood Blood Culture - Preliminary NO GROWTH AFTER 24 HOURS Most Recent Lab Values WBC 4.0 K/uL (4.8-10.8) L 12/01/16 04:35 RBC 3.24 Mil/uL (3.80-5.20) L 12/01/16 04:35 Hgb 9.0 g/dL (12.0-16.0) L 12/01/16 04:35 Hct 28.0 % (34.0-47.0) L 12/01/16 04:35 MCV 86.2 fl (81.0-99.0) 12/01/16 04:35 MCH 27.8 pg (27.0-31.0) 12/01/16 04:35 MCHC 32.2 g/dL (33.0-37.0) L 12/01/16 04:35 RDW 17.6 % (11.5-14.5) H 12/01/16 04:35 Plt Count 38 K/uL (130-400) L 12/01/16 04:35 MPV 8.9 fl (7.2-11.7) 12/01/16 04:35 Gran % Cancelled 11/30/16 20:03 Neut % (Auto) 71.0 % (50.0-75.0) 12/01/16 04:35 Lymph % (Auto) 12.5 % (20.0-40.0) L 12/01/16 04:35 Pender % (Auto) 16.0 % (0.0-10.0) H 12/01/16 04:35 Eos % (Auto) 0.2 % (0.0-4.0) 12/01/16 04:35 Baso % (Auto) 0.3 % (0.0-2.0) 12/01/16 04:35 Gran # Cancelled 11/30/16 20:03 Neut # 2.8 K/uL (1.8-7.0) 12/01/16 04:35 Lymph # 0.5 K/uL (1.0-4.3) L 12/01/16 04:35 Pender # 0.6 K/uL (0.0-0.8) 12/01/16 04:35 Eos # 0.0 K/uL (0.0-0.7) 12/01/16 04:35 Baso # 0.0 K/uL (0.0-0.2) 12/01/16 04:35 PT 17.1 Seconds (9.8-13.1) H 11/30/16 10:10 INR 1.6 (0.9-1.2) H 11/30/16 10:10 APTT 34.0 Seconds (25.6-37.1) 11/30/16 10:10 Sodium 138 mmol/l (132-148) 12/01/16 04:35 Potassium 3.6 MMOL/L (3.6-5.0) 12/01/16 04:35 Chloride 104 mmol/L (98-107) 12/01/16 04:35 Carbon Dioxide 24 mmol/L (22-30) 12/01/16 04:35 Anion Gap 14 (10-20) 12/01/16 04:35 BUN 11 mg/dl (7-17) 12/01/16 04:35 Creatinine 0.6 mg/dL (0.7-1.2) L 12/01/16 04:35 Est GFR ( Amer) > 60 12/01/16 04:35 Est GFR (Non-Af Amer) > 60 12/01/16 04:35 POC Glucose (mg/dL) 168 mg/dL (65-110) H 12/01/16 17:00 Random Glucose 148 mg/dL (65-105) H 12/01/16 04:35 Lactic Acid 2.7 MMOL/L (0.7-2.1) H 11/30/16 20:05 Calcium 8.6 mg/dL (8.4-10.2) 12/01/16 04:35 Total Bilirubin 1.8 mg/dl (0.2-1.3) H 11/30/16 10:10 AST 99 U/L (14-36) H D 11/30/16 10:10 ALT 25 U/L (9-52) 11/30/16 10:10 Alkaline Phosphatase 133 U/L (38-126) H D 11/30/16 10:10 Total Creatine Kinase 112 U/L (30-135) 11/30/16 10:10 Troponin I 0.6940 ng/mL (0.00-0.120) H* 12/01/16 04:35 Total Protein 10.1 G/DL (6.3-8.2) H 11/30/16 10:10 Albumin 4.3 g/dL (3.5-5.0) 11/30/16 10:10 Globulin 5.8 gm/dL (2.2-3.9) H 11/30/16 10:10 Albumin/Globulin Ratio 0.7 (1.0-2.1) L 11/30/16 10:10 TSH 3rd Generation 0.36 mIU/ML (0.46-4.68) L 12/01/16 04:35 Urine Color Yellow (YELLOW) 12/01/16 08:20 Urine Clarity Slighty-cloudy (Clear) 12/01/16 08:20 Urine pH 6.0 (5.0-8.0) 12/01/16 08:20 Ur Specific [place] 1.024 (1.003-1.030) 12/01/16 08:20 Urine Protein 30 mg/dL (NEGATIVE) 12/01/16 08:20 Urine Glucose (UA) Neg mg/dL (Normal) 12/01/16 08:20 Urine Ketones Negative mg/dL (NEGATIVE) 12/01/16 08:20 Urine Blood Small (NEGATIVE) 12/01/16 08:20 Urine Nitrate Negative (NEGATIVE) 12/01/16 08:20 Urine Bilirubin Negative (NEGATIVE) 12/01/16 08:20 Urine Urobilinogen 0.2-1.0 mg/dL (0.2-1.0) 12/01/16 08:20 Ur Leukocyte Esterase Neg Amanda/uL (Negative) 12/01/16 08:20 Urine RBC (Auto) 13 /hpf (0-3) H 12/01/16 08:20 Ur Squamous Epith Cells 11 /hpf (0-5) H 08/09/17 08:20 Hyaline Casts 0-2 /hpf (0-2) 12/01/16 08:20 Alcohol, Quantitative < 10 mg/dl (0-10) 11/30/16 10:10 Discharge Exam - Head Exam Head Exam: ATRAUMATIC, NORMAL INSPECTION, NORMOCEPHALIC Discharge Plan - Follow Up Plan Condition: GUARDED Disposition: Trans to Other Acute Care Hosp Additional Instructions: xfer to [facility] last night. final dx-squamous cell lung cancer w/ ?? mets, newonset sz, lacunar infarcts further care as per [facility] team
--- NOTE | 2016-12-02 11:25 | CARD ---
APPROVED REPORT EXAM: Two-dimensional and M-mode echocardiogram with Doppler and color Doppler. Other Information Quality : GoodRhythm : NSR INDICATION LV Function:SystolicDiastolic OK 2D DIMENSIONS IVSd1.34 (0.7-1.1cm)LVDd4.30 (3.9-5.9cm) LVOT Diameter2.66 (1.8-2.4cm)PWd0.93 (0.7-1.1cm) IVSs1.18 (0.8-1.2cm)LVDs2.67 (2.5-4.0cm) FS (%) 37.9 %PWs1.24 (0.8-1.2cm) M-Mode DIMENSIONS Left Atrium (MM)4.21 (2.5-4.0cm)IVSd1.00 (0.7-1.1cm) Aortic Root2.82 (2.2-3.7cm)LVDd5.15 (4.0-5.6cm) Aortic Cusp Exc.1.82 (1.5-2.0cm)PWd0.97 (0.7-1.1cm) IVSs1.59 cmFS (%) 41 % LVDs3.06 (2.0-3.8cm)PWs1.47 cm Mitral Valve MV E Wbxehpnt55.0cm/sMV DECEL [id number] A Muhlehvm26.9cm/s MV LEF95vvK/A ratio1.2MVA (PHT)4.07cm2 TDI Lateral E' Peak V13.04cm/sMedial E' Peak V7.25cm/sE/Lateral E'6.4 E/Medial E'11.6 Pulmonary Valve PV Peak Wrjdogzq74.0cm/s LEFT VENTRICLE The left ventricle is normal size. There is normal left ventricular wall thickness. Left ventricle systolic function is normal. The Ejection Fraction is 65-70%. Apical 1/3 of the septum showed hypokinesia, therwise normal rergional LV wall motion. The left ventricular diastolic function is normal. RIGHT VENTRICLE The right ventricle is normal size. There is normal right ventricular wall thickness. The right ventricular systolic function is normal. ATRIA The left atrium is mildly dilated. The right atrium size is normal. AORTIC VALVE The aortic valve is normal in structure and function. No aortic regurgitation is present. There is no aortic valvular stenosis. MITRAL VALVE The mitral valve is normal in structure and function. There is no evidence of mitral valve prolapse. There is no mitral valve stenosis. There is no mitral valve regurgitation noted. TRICUSPID VALVE The tricuspid valve is normal in structure. There is trace tricuspid regurgitation. There is no tricuspid valve prolapse or vegetation. PULMONIC VALVE The pulmonary valve is normal in structure and function. There is no pulmonic valvular regurgitation. GREAT VESSELS The aortic root is normal in size. The IVC was not visualized. PERICARDIAL EFFUSION There is a small circumferential pericardial effusion. <Conclusion> The left ventricle is normal size. There is normal left ventricular wall thickness. Apical 1/3 of the septum showed hypokinesia, therwise normal rergional LV wall motion. Left ventricle systolic function is normal. The Ejection Fraction is 65-70%. The left ventricular diastolic function is normal. There is a small circumferential pericardial effusion.
== END 2016-12-01 18:45 | disposition short-term general hospital (02) | DRG 14 ==
LOC: H.ER 09:45 → OBSVTOIN 11:29 → H.ERHOLD 11:29 → H.ICU/CCU 21:37
PROVIDERS: ADMIT Family Medicine; ATTEND Family Medicine
DX: I63.443 Cerebral infarction due to embolism of bilateral cerebellar arteries (principal); C79.31 Secondary malignant neoplasm of brain; R56.9 Unspecified convulsions; D69.6 Thrombocytopenia, unspecified; C34.90 Malignant neoplasm of unspecified part of unspecified bronchus or lung; E86.0 Dehydration; D64.9 Anemia, unspecified; I10 Essential (primary) hypertension; E11.9 Type 2 diabetes mellitus without complications; F17.210 Nicotine dependence, cigarettes, uncomplicated; G40.909 Epilepsy, unspecified, not intractable, without status epilepticus